=== PATIENT | male | born 1965 | race Caucasian/White ===

== ENCOUNTER 2023-05-30 09:08 | Emergency (ER) | payer SELFPAY ==
[2023-05-30 09:18] VITALS: BP 184/93
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
[2023-05-30 11:41] VITALS: BP 163/100
== END 2023-05-30 11:42 | disposition home or self-care (01) ==
LOC: EMR 09:08
PROVIDERS: EMERGENCY PHYSICIAN Student in an Organized Health Care Education/Training Program; FAMILY PHYSICIAN Nurse Practitioner Family
DX: S00.11XA Contusion of right eyelid and periocular area, initial encounter (principal); V89.2XXA Person injured in unspecified motor-vehicle accident, traffic, initial encounter; R03.0 Elevated blood-pressure reading, without diagnosis of hypertension
CPT/HCPCS: 99284; 70450; 70480

== ENCOUNTER 2024-11-21 05:42 | Emergency (ER) | payer SELFPAY ==
[2024-11-21] VITALS (10 sets, daily range): BP systolic 170–221; BP diastolic 102–123
--- NOTE | 2024-11-21 06:11 | ED.GENMED ---
History of Present Illness
General
Chief Complaint: Abdominal Pain
Source: patient
Exam Limitations: none
Time Seen by Provider: 11/21/24 05:57
History of Present Illness
History of Present Illness:
59yoM with a history of hypertension presenting for evaluation of abdominal pain. Patient woke up in the middle of the night at 1:30am with pain in his epigastric and RUQ. He describes a severe burning pain that has been constant. He is also
nauseous and has vomited 6x so far. This is the 4th time that he has had this pain but the prior episodes have not lasted this long. He ate a hoagie at [facility] for dinner last night. He also had a stressful court hearing yesterday. He denies any
fevers, hematemesis, chest pain, shortness of breath, diarrhea, difficulty urinating. No previous abdominal surgeries.
Phy Exam
General Physical Exam
General Presentation: well appearing and no apparent distress
General Skin: warm and dry
General Habitus: normal
General Mental: alert
ENT Exam
ENT Exam: normocephalic
Cardiovascular Exam
Cardiovascular Exam: regular rate/rhythm and no murmur
Pulmonary Exam
Pulmonary Exam: lungs clear, no respiratory distress, no rales, no crackles, no rhonchi and no wheezing
Gastrointestinal Exam
Gastrointestinal Exam: soft, non distended and other (+Tenderness in RUQ and RLQ. Abdomen soft, non-distended. No guarding.)
Neurological Exam
Neurological Exam: alert
[place] Coma Scale
Eye Opening: Spontaneous
Verbal Response: Oriented
Motor Response: Obeys Commands
GCS Total Score: 15
Skin Exam
Skin Exam: warm/dry and other (Diffuse scabbed rash noted. Patient is recovering from poison iris.)
Psychiatric Exam
Psychiatric Exam: normal mood/affect
Course
Orders/Labs/Results
Orders:
Orders
11/21/24 05:49
Electrocardiogram (*1) Urgent
Reason for Study: Abdominal Pain
EKG- Treatment ONCE
IV Insert/Care/Rem.- Treatment PRN
11/21/24 06:03
Comprehensive Metabolic Panel Urgent
Lipase Urgent
Magnesium Urgent
Comment: ADD ON
11/21/24 06:04
Complete Blood Count/With Diff Urgent
11/21/24 06:06
0.9% Sodium Chloride 1000 ml [Nss] 1,000 ml IV BOLUS
HYDROmorphone [Dilaudid] 0.5 mg IV NOW STA
11/21/24 06:07
CT Abd/pelvis W Iv Cont Urgent
Comment:
Reason For Exam: R sided abd pain, epigastric pain
Ondansetron Injectable [Zofran] 4 mg IV NOW STA
11/21/24 06:11
Troponin I Urgent
11/21/24 06:25
Add On- LAB Urgent
Tests Added?: magnesium
11/21/24 07:16
Urinalysis Reflex To Culture Urgent
Date Specimen was Collected: 11/21/24
Time Specimen was Collected: 05:49
Abnormal Lab Results
11/21/24 11/21/24
06:03 06:04
Abs Immat Gran (auto) 0.1 H 10^3/uL
(0-0.05)
Absolute Neuts (auto) 8.1 H 10^3/uL
(1.4-6.5)
Absolute Lymphs (auto) 1.1 L 10^3/uL
(1.2-3.4)
Absolute Monos (auto) 0.7 H 10^3/uL
(0.1-0.6)
Immature Gran % 0.6 H %
(0-0.5)
Neutrophils % 79.1 H %
(42.2-75.2)
Lymphocytes % 11.1 L %
(20.5-51.1)
Creatinine 0.6 L mg/dL
(0.7-1.3)
Glucose 152 H mg/dl
(70-99)
Total Protein 8.4 H g/dl
(6.3-8.2)
Albumin 5.2 H g/dl
(3.5-5.0)
11/21/24 06:04
11/21/24 06:03
Vital Signs
Temp: 97.5 F
Initial and Last Documented VS:
Initial Vital Signs
Pulse Resp BP Pulse Ox
70 24 170/110 98
11/21/24 05:45 11/21/24 05:45 11/21/24 05:45 11/21/24 05:45
Last Documented Vital Signs
Temp Pulse Resp BP Pulse Ox
97.5 F 75 20 201/102 96
11/21/24 06:24 11/21/24 08:05 11/21/24 08:00 11/21/24 09:25 11/21/24 09:30
MDM/Problems Addressed
Differential Diagnosis Includes:
59yoM here with abd pain that woke him up from sleep last night. Described as severe pain in epigastric/RUQ pains. Associated with vomiting. Similar pains in the past. He is hypertensive with otherwise stable vitals. He is non-toxic appearing. No
signs of peritonitis on abdominal exam. Differential diagnosis includes but is not limited to: cholecystitis, biliary colic, gastritis, appendicitis, gastroenteritis
Initial ED plan: Check abdominal labs, troponin/EKG, UA, and CT abdomen. IV Zofran, Dilaudid, and fluid bolus for symptoms.
*Pulse Oximetry
SaO2: 98
Oxygen Mode of Delivery: Room air
Patient hypoxic: no (98%)
*EKG
Interpreted by ED Provider?: Yes
EKG Intrepretation Date: 11/21/24
Heart Rate: 74
Rate: normal
Rhythm: sinus and PVC's
[place]: normal axis
Interval: normal interval
QRS Pattern: normal QRS
Ischemia: no ischemia
*Critical Care Note
Total Time (30-74mins, 75-104mins- exclusive of procedures): Not Applicable
Update Note
Update Note:
Labs unremarkable including normal white count, renal function, LFTs, and lipase. EKG shows normal sinus rhythm with frequent PVCs. Troponin within normal limits. UA bland. CT shows cholelithiasis without evidence of cholecystitis. No other
acute findings on imaging. Patient feeling significantly improved on reassessment and pain is down to a 2/10 in severity. Suspect biliary colic as source of his pain. He was advised to eat a low fat diet and follow-up with general surgery. His
blood pressure was also elevated throughout ED stay. Patient missed the last 3 doses of his antihypertensives. He was advised to f/u with his PCP for blood pressure recheck. Strict ED return precautions discussed including uncontrolled pain,
fevers, chills, jaundice. Patient in agreement with plan and was discharged in stable condition.
ED Attending Note
-
Portions of this chart may have been created with voice recognition software.� Occasional wrong word or��sound alike� substitutions may have occurred due to the inherent limitations of voice recognition software.
Discharge Plan
Departure
Patient Disposition: Home (Routine Discharge)
Date of Disposition: 11/21/24
Time of Disposition: 09:40
Patient with high blood pressure during this ER visit?: Yes
Discharge Problem:
Biliary colic, Hypertension
Instructions: Gallstones (DC), Low-fat diet
Referrals:
Trevin Mathews MD [Active, Surgical]
UNKNOWN - PT DOES,NOT KNOW [Family Provider]
Activity Restrictions/Additional Instructions:
Eat a low-fat diet. Take Tylenol and ibuprofen as needed for pain.
Please call today to schedule a follow-up with general surgery. Return to the ER with any worsening symptoms including uncontrolled pain, fevers, chills, or jaundice.
Your blood pressure was significantly elevated while in the emergency department today. Please take your blood pressure medications as prescribed and follow-up with your family doctor for blood pressure check.
Interventions
Interventions:
*Risk Screen - Suicide Last Done: 11/21/24 05:45
*General Assessment Last Done: 11/21/24 05:45
*Neglect/Abuse Screening Last Done: 11/21/24 05:45
*ED- Fall Risk Assessment Last Done: 11/21/24 05:45
*ED COVID-19 Vaccine History Last Done: 11/21/24 05:45
*Nursing Disposition Last Done: 11/21/24 10:10
RJ-Uvhdax-Rczsewrouy Assessment Last Done: 11/21/24 05:54
Discharge Date and Time
Discharge Date/Time: 11/21/24 10:00
Print Language: YI
[2024-11-21] MEDS: DILAUDID 0.5 MG IV (06:15)
[2024-11-21] MEDS: ZOFRAN 4 MG IV (06:15)
[2024-11-21] MEDS: NSS 1000 IV (06:15)
[2024-11-21 06:20] LABS: Hematocrit 44.5 % (39.0-52.0); Hemoglobin 15.7 g/dL (13.0-18.0); Mean Corp Hgb Conc. 35.3 g/dL (33.0-37.0); Mean Corpuscular Volume 82.4 fL (80.0-94.0); Nucleated Red Blood Cells % 0 % (-); Platelet Count 243 10^3/uL (130-400); Red Cell Dist. Width 12.8 % (11.5-14.5)
[2024-11-21 06:30] LABS: ALT (SGPT) 19 U/L (0-50); AST (SGOT) 24 U/L (17-59); Albumin 5.2 g/dl (3.5-5.0); Alkaline Phosphatase 62 U/L (38-126); Blood Urea Nitrogen 11 mg/dl (9-20); Calcium 9.9 mg/dl (8.4-10.2); Carbon Dioxide 24 mmol/L (22-30); Chloride 104 mmol/L (98-107); Estimated Creatinine Clearance > 125 ml/min; Glucose 152 mg/dl (70-99); Lipase 41 U/L (23-300); Potassium 4.2 mmol/L (3.5-5.1); Sodium 139 mmol/L (135-145); Total Protein 8.4 g/dl (6.3-8.2); eGFR > 60.00
[2024-11-21 06:42] LABS: Troponin I < 0.012 ng/ml
[2024-11-21 06:43] LABS: Magnesium 1.8 mg/dl (1.6-2.3)
[2024-11-21 07:40] LABS: Urine Character Clear (Clear)
== END 2024-11-21 10:00 | disposition home or self-care (01) ==
LOC: EMR 05:42
PROVIDERS: Physician Assistant; Student in an Organized Health Care Education/Training Program; EMERGENCY PHYSICIAN Emergency Medicine
DX: K80.70 Calculus of gallbladder and bile duct without cholecystitis without obstruction (principal); R11.2 Nausea with vomiting, unspecified; I10 Essential (primary) hypertension; L23.7 Allergic contact dermatitis due to plants, except food; Z88.0 Allergy status to penicillin
CPT/HCPCS: 99284; 96375; 96361; 96374; 74177; 80053; 81003; 83690; 83735; 84484; 85025; 93005; Q9967

== ENCOUNTER 2024-11-26 15:29 | Inpatient (IN) | payer OTHER, SELFPAY ==
[2024-11-26 10:30] VITALS: BP 165/106
[2024-11-26 11:27] VITALS: BP 157/85
[2024-11-26 12:00] VITALS: BP 159/83
[2024-11-26] MEDS: DILAUDID 0.5 MG IV ×2 (12:41→23:00)
[2024-11-26] MEDS: NSS 1000 IV ×2 (12:41→17:38)
[2024-11-26] MEDS: ZOFRAN 4 MG IV (12:43)
[2024-11-26 12:58] LABS: Hematocrit 37.8 % (39.0-52.0); Hemoglobin 13.3 g/dL (13.0-18.0); Mean Corp Hgb Conc. 35.2 g/dL (33.0-37.0); Mean Corpuscular Volume 82.2 fL (80.0-94.0); Nucleated Red Blood Cells % 0 % (-); Platelet Count 254 10^3/uL (130-400); Red Cell Dist. Width 12.8 % (11.5-14.5)
[2024-11-26 13:12] LABS: ALT (SGPT) 62 U/L (0-50); AST (SGOT) 40 U/L (17-59); Albumin 3.6 g/dl (3.5-5.0); Alkaline Phosphatase 187 U/L (38-126); Blood Urea Nitrogen 28 mg/dl (9-20); Calcium 9.3 mg/dl (8.4-10.2); Carbon Dioxide 23 mmol/L (22-30); Chloride 97 mmol/L (98-107); Glucose 96 mg/dl (70-99); Lipase 36 U/L (23-300); Potassium 3.9 mmol/L (3.5-5.1); Sodium 130 mmol/L (135-145); Total Protein 6.6 g/dl (6.3-8.2); eGFR > 60.00
--- NOTE | 2024-11-26 13:50 | ED.GENMED ---
History of Present Illness
General
Chief Complaint: Abdominal Symptoms
Time Seen by Provider: 11/26/24 11:24
History of Present Illness
History of Present Illness:
see mdm
Phy Exam
Physical Exam
Physical Exam:
GENERAL: Alert , in no apparent distress temp 100.2
EYE: pupils equal and reactive
NECK: Supple
ENT: o/p clr, mmm.
CARDIAC: Regular rate and rhythm .
LUNGS: Clear breath sounds bilaterally, no acute respiratory distress, no wheezes/rales/rhonchi
ABDOMEN: Soft, moderate RUQ tendneress, no r/g, no cvat, normal bowel sounds
NEUROLOGICAL: Alert and oriented, no focal neuro deficits
SKIN: Warm and dry, skin intact.
MUSCULOSKELETAL: No edema, well perfused.
PSYCH: Normal and appropriate interaction.
Course
Orders/Labs/Results
Orders:
Orders
11/26/24 12:04
Urinalysis Reflex To Culture Urgent
0.9% Sodium Chloride 1000 ml [Nss] 1,000 ml IV BOLUS
HYDROmorphone [Dilaudid] 0.5 mg IV NOW STA
Ondansetron Injectable [Zofran] 4 mg IV NOW STA
US Abdomen Complete/Upper Urgent
Comment:
Reason For Exam: ruq pain, gallstones, fever
11/26/24 12:39
Complete Blood Count/With Diff Urgent
Comprehensive Metabolic Panel Urgent
Lactic Acid Urgent
Lipase Urgent
Blood Culture Q30M
LACEY Source: Blood/Venous
Specimen Description:
Blood Culture Q30M
LACEY Source: Blood/Venous
Specimen Description:
11/26/24 14:40
Ampicillin/Sulbactam 3 G [Unasyn] 3 gm 0.9% Sodium Chloride 100 ml [Nss] 100 ml IV NOW
Abnormal Lab Results
11/26/24
12:39
WBC 13.1 H 10^3/uL
(4.8-10.8)
RBC 4.60 L 10^6/uL
(4.70-6.10)
Hct 37.8 L %
(39.0-52.0)
Abs Immat Gran (auto) 0.2 H 10^3/uL
(0-0.05)
Absolute Neuts (auto) 9.8 H 10^3/uL
(1.4-6.5)
Absolute Lymphs (auto) 1.0 L 10^3/uL
(1.2-3.4)
Absolute Monos (auto) 1.7 H 10^3/uL
(0.1-0.6)
Immature Gran % 1.1 H %
(0-0.5)
Lymphocytes % 8.0 L %
(20.5-51.1)
Monocytes % 13.0 H %
(1.7-9.3)
Sodium 130 L mmol/L
(135-145)
Chloride 97 L mmol/L
(98-107)
BUN 28 H mg/dl
(9-20)
ALT 62 H U/L
(0-50)
Alkaline Phosphatase 187 H U/L
(38-126)
11/26/24 12:39
11/26/24 12:39
Vital Signs
Initial and Last Documented VS:
Initial Vital Signs
Temp Pulse Resp BP Pulse Ox
37.0 C 99 16 165/106 97
11/26/24 10:30 11/26/24 10:30 11/26/24 10:11/26/24 10:30 11/26/24 10:30
Last Documented Vital Signs
Temp Pulse Resp BP Pulse Ox
37.0 C 99 16 165/106 97
11/26/24 10:30 11/26/24 10:30 11/26/24 10:30 11/26/24 10:30 11/26/24 14:00
MDM/Problems Addressed
Differential Diagnosis Includes:
see MDM
MDM/Problems Addressed:
Note:
CHIEF COMPLAINT(S)
Persistent abdominal pain and nausea, low-grade fever, and inability to maintain normal caloric intake.
HISTORY OF PRESENT ILLNESS
pt is a 59 y/o M with recent ED visit 11/21 for epgiastric pain and vomiting related to biliary colic, who returns to continued symptoms of abd pain, nausea, lack of appetite and new fevers to 100.2
He reports ongoing significant abdominal pain that originally manifested in the right upper quadrant and has since migrated, alongside nausea. The patient notes that his discomfort has been persistent and debilitating, impeding his ability to
work. He admits to having a fever which he estimates peaked at approximately 100.2 degrees Fahrenheit, as he experienced chills, although he did not consistently measure it. The fever was controlled temporarily with ibuprofen, taken twice daily. He
reports significant fatigue and sleepiness, alongside poor dietary intake, only managing to consume small portions of rice and potatoes due to persistent nausea. He also experiences dark urine but reports improvement over the last couple of days.
The patient describes associated pain in the right shoulder, particularly painful with deep breaths. He expresses the previous plan to manage the issue conservatively until an upcoming planned surgical consultation but finds the symptoms
increasingly unbearable.
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
The patient appears to have job-related stress, as he mentions being unable to perform at work due to his debilitating pain and fatigue.
PAST MEDICAL HISTORY
Hypertension
PHYSICAL EXAM
- Abdominal pain localized initially in the right upper quadrant
- Shoulder pain only noted in right shoulder, exacerbated with deep breathing
- Vital signs reviewed
- Nursing notes reviewed
PROBLEM LIST
Acute Problems:
- Abdominal pain secondary to gallstones
- Nausea/vomiting
- Low-grade fever
- Fatigue
Chronic Problems:
- Hypertension
PLAN
- Perform blood tests for further analysis and evaluation
- Administer intravenous fluids to manage dehydration and support the patient due to minimal oral intake
- Keep the patient nil per os (NPO) until assessment is completed
- Facilitate an abdominal ultrasound to reassess gallstone presence and gallbladder status
- Assess the need for pain management tailored to the patients expressed combination of pain and nausea
DIFFERENTIAL DIAGNOSIS
The Differential Diagnosis includes, in no particular order and is not limited to:
1. Acute cholecystitis
2. Biliary colic
3. Choledocholithiasis
4. Pancreatitis
5. Peptic ulcer disease
6. Gastritis
7. Hepatitis
8. Appendicitis
9. Gastroenteritis
10. Musculoskeletal pain (e.g., Costochondritis)
porsche camarena in room 6 is 59 y/o M h/o htn
here 11/21 for RUQ pain, vomiting; no fever; had normal wbc, normal lfts and ct showing gallstones
pain controlled, went home
has continued with pain, nauesa, and now temps 100.2
AST 40, ALT 62, ALK PHOS 187, wbc 13
and US shows thickened gb wall; 1.4 stone in the neck, and slightly dilated cbd 7 mm no obvious stone there
d/w surgery dr. gerard
admit medicine
abx
will try unasyn; d/w pharmacist; pot has tolerated amox before
*Pulse Oximetry
SaO2: 97
Oxygen Mode of Delivery: Room air
Patient hypoxic: no (97)
*Critical Care Note
Total Time (30-74mins, 75-104mins- exclusive of procedures): Not Applicable
ED Attending Note
-
Portions of this chart may have been created with voice recognition software.� Occasional wrong word or��sound alike� substitutions may have occurred due to the inherent limitations of voice recognition software.
Discharge Plan
Departure
Patient Disposition: Admit
Date of Disposition: 11/26/24
Time of Disposition: 14:12
Admit to: Med/Surg
Presentation/result/management discussed w/ accepting MD/DO: Hospitalist
Condition: Fair
Covid-19: Not Applicable
Discharge Problem:
Acute cholecystitis
Prescriptions:
No Action
lisinopril 10 mg tablet
10 mg PO DAILY
metoprolol succinate [Toprol XL] 50 mg Tablet Extended Release 24 Hr
50 mg PO DAILY
calcium carbonate [Tums] 200 mg calcium (500 mg) Tablet,Chewable
200 mg PO BIDPRN PRN (Reason: gerd)
metoprolol succinate [Toprol XL] 25 mg Tablet Extended Release 24 Hr
25 mg PO QPM
escitalopram oxalate [Lexapro] 10 mg Tablet
10 mg PO DAILY
ibuprofen [Advil] 200 mg Tablet
800 mg PO DAILYPRN PRN (Reason: mild pain)
Interventions
Interventions:
*General Assessment Last Done: 11/26/24 14:41
*Neglect/Abuse Screening Last Done: 11/26/24 14:41
*ED- Fall Risk Assessment Last Done: 11/26/24 14:41
*ED COVID-19 Vaccine History Last Done: 11/26/24 14:41
Discharge Date and Time
Print Language: [place]
--- NOTE | 2024-11-26 14:42 | HPS.HSE ---
Family Physician
-
Family Physician:
Chief Complaint
-
epigastric pain to right side abdomen with nausea, lack of appetite for the past 5 days
History of Present Illness
59-year-old male complaining of epigastric pain to right side abdomen with nausea, lack of appetite for the past 5 days. He has been taken Motrin 800 mg twice daily for pain and has been lying in bed not taking a temperature. On arrival his temp
was 100.2 F. He was recently seen in the ER on 11/21 for epigastric pain and vomiting secondary to biliary colic however he returned today due to persistent debilitating pain with inability to work and a low-grade fever with chills. He has been
taking ibuprofen twice a day for the low-grade fevers. He has been eating small portions of rice and potatoes due to persistent nausea. In the ER his ultrasound shows acute cholecystitis with mild CBD dilation 7 mm. He denies headache, sore
throat, chest pain, palpitations, cough, shortness of breath, diarrhea, urinary symptoms, rash. He has past medical history of uncontrolled hypertension, depression.
Medical History
Past Medical History
Past Medical History: Reports Other
Additional Past Medical History:
Uncontrolled hypertension
Depression
Past Surgical History: Reports Other
Additional Past Surgical History:
Right shoulder AC separation dislocation reconstruction 1982, repeat 1990
Social History
Tobacco: Smoker (Occasionally smokes 0 to a couple cigarettes when out with friends)
Alcohol: None
Drug: None
Personal: Single
Employment: Employed
Family History
Family History: Not pertinent
Allergies / Home Medications
Allergies reflects when Allergies were last updated in [facility].
Home Medications with original date entered in [facility]
Allergy/Medication List:
Allergies
Allergy/AdvReac Type Severity Reaction Status Date / Time
Penicillins Allergy questionable Verified 11/26/24 14:19
rash at 5
years old,
tolerates
amoxicillin
Home Medications
calcium carbonate (Tums) 200 mg PO BIDPRN PRN gerd 11/26/24
escitalopram oxalate 10 mg tablet (Lexapro) 10 mg PO DAILY 11/26/24
ibuprofen 200 mg tablet (Advil) 800 mg PO DAILYPRN PRN mild pain 11/26/24
lisinopril 10 mg tablet 10 mg PO DAILY 11/26/24
metoprolol succinate 25 mg tablet,extended release 24 hr (Toprol XL) 25 mg PO QPM 11/26/24
metoprolol succinate 50 mg tablet,extended release 24 hr (Toprol XL) 50 mg PO DAILY 11/26/24
Review of Systems
-
History Source: Patient and Family (Daughter at bedside)
A 12 point ROS was completed and negative except as noted: Yes
Constitutional: Reports Fever and Chills
EENT: Denies Sore Throat or Runny Nose
Respiratory: Denies Cough or Trouble Breathing
Cardiac: Denies Chest Pain or Diaphoresis
Abdomen/GI: Reports Abdominal Pain (Epigastric to right upper quadrant) and Nausea; Denies Vomiting, Diarrhea, Constipated, Bloody Stools or Black Stools
: Denies Dysuria, Frequency, Flank Pain, Incontinence, Difficulty Voiding, Urgency or Dark Urine
Musculoskeletal: Denies Joint Pain or Edema
Skin: Denies Itching or Rash
Neurological: Denies Dizzy, Headache or Weakness
Endocrine: Reports No Symptoms
Hematologic/Lymphatic: Reports No Symptoms
Psych: Reports Calm
Physical Exam
Vital Signs
Vital Signs
Temp Pulse Resp BP Pulse Ox
98.6 F 99 16 165/106 97
11/26/24 10:30 11/26/24 10:30 11/26/24 10:30 11/26/24 10:30 11/26/24 14:00
Physical Exam
General: Conversant; No Pain, Fever or Chills
HEENT: NormoCephalic, Anicteric, PERRLA, [place] Conjunctivae and No Ptosis
Respiratory: Clear; No Wheezes, Rales or Rhonchi
Cardiac: S1/S2 and Regular Rhythm; No Murmur, Rub, Gallop or Peripheral Edema
Breast: Deferred by me
GI: Soft, Non Distended, Normal Bowel Sounds, Tender (Epigastric, right upper quadrant) and No Hepatosplenomegaly
Rectal: Deferred by Provider
Genito-urinary: Deferred by me
Musculoskeletal: No Clubbing, No Cyanosis and No Edema
Skin: Warm and Dry; No Rash
Neuro: AO x 3, No Motor Deficits, Nonfocal/grossly intact, Cranial Nerves Intact and No Sensory Deficits; No Slurred Speech, Facial Droop, Tremors or Sedated
Psych: Calm
Laboratory Results
-
11/26/24 12:39
11/26/24 12:39
Laboratory Results
Lactic Acid 0.9 mmol/L (0.7-2.0) 11/26/24 12:39
Total Bilirubin 1.1 mg/dl (0.2-1.3) 11/26/24 12:39
AST 40 U/L (17-59) 11/26/24 12:39
ALT 62 U/L (0-50) H 11/26/24 12:39
Alkaline Phosphatase 187 U/L (38-126) H 11/26/24 12:39
Lipase 36 U/L (23-300) 11/26/24 12:39
Data Reviewed
-
Ultrasound: Report Reviewed by me
Lab Data: Labs Reviewed by me
Impression/Plan
-
Impression/plan:
Admit to MedSurg
#Acute cholecystitis with mild CBD dilation
#Mild transaminitis secondary to above
WBC 13.1 no shift, afebrile, ALT 62, alk phos 187
- N.p.o.
- Consult Isabella Valencia made aware
- IV Unasyn, IV NSS
- Pain control IV Dilaudid, IV Zofran
- IV Zofran
-MRCP/MRI abdomen
- Follow CBC, CMP
Ultrasound abdomen complete:
1.) 1.4 cm gallstone in the neck of the gallbladder, nonmobile.
2). Gallbladder wall appears thickened and heterogeneous with suggestion of edema within the gallbladder wall. Imaging findings would be suggestive of acute cholecystitis, although the patient has a negative
sonographic Rehman's sign.
3.) Mild dilation of the common bile duct, measuring up to 7 mm, which appears to be new since CT scan of November 21, 2024. No sonographic evidence for common bile duct calculus, although the entire common bile duct is
not visualized.
4.) Upper abdominal aorta and upper abdominal IVC are unable to be adequately visualized.
5.)Suboptimal visualization of the pancreas, with no gross abnormality in the peripancreatic region.
#Hx Uncontrolled hypertension
BP 165/106 > 129/79 patient did take a.m. meds
-Toprol XL 50 mg in a.m., 25 mg every afternoon, lisinopril 10 mg daily
- IV hydralazine 10 mg SBP>165 danielle>110
#Mild hyponatremia
NA 130 will follow
#Occasional smoker
States smokes occasionally with friends sometimes once a week sometimes a couple
-Cessation advised
DVT prophylaxis
SCDs
Full code
--- NOTE | 2024-11-26 15:08 | W.PN.UPDATE ---
Update Note
Progress Note Update
This is an addendum to H&P written by Yolanda Newberry on 11/26/2024. �Patient seen and examined independently with [facility]ST[facility].
59-year-old male past medical history of hypertension, anxiety/depression, presenting with Right upper quadranrt pain and fevers and chills.�
Blood pressure 180s to 220 systolic.
Labs show mild ALT elevation of 62, alk phos of 180. �Sodium 130. �Leukocytosis.
Abdominal ultrasound shows 1.4 cm gallstone in the neck of the gallbladder. �Gallbladder wall appears thickened and heterogeneous with suggestion of edema within the gallbladder wall suggesting acute cholecystitis although negative sonographic
Rehman sign. �Mild dilatation of the common bile duct measuring 7 mm without evidence of CBD calculus.
Patient with likely acute cholecystitis, possible choledocholithiasis. �Also elevated blood pressure secondary to pain.
N.p.o., IV fluids, blood cultures, Unasyn, general surgery consulted. MRCP to rule out choledocholithiasis.
--- NOTE | 2024-11-26 15:22 | CON.GS ---
Medical History
-
Chief Complaint: Abdominal pain
History of Present Illness:
Patient is a yo M with a PMH of obesity, tobacco use, and HTN who presents with approximately 1 weeks of upper abdominal pain. Mr. Don was recently evaluated in the ER on 11/21 for RUQ abdominal pain. He was diagnosed with symptomatic
cholelithiasis at that time, but his symptoms improved and he opted for discharge. Since that time he has had persistent RUQ abdominal pain. Radiation to RIGHT shoulder. Limited PO intake. Low grade fevers and chills. Treating himself with
NSAIDs, Nausea, but no emesis. He reports dark urine and jaundice, but no pale stools. Prior attacks dating back to August of 2024. Currently with persistent pain.
Past Medical History
Past Medical History: HTN
Past Surgical History: Orthopedic (RIGHT shoulder)
Social History
Tobacco: Smoker (< 1/2 PPD)
Alcohol: None
Drug: None
Personal: Single
Employment: Employed
Family History
Family History: Reviewed & Noncontributory
Allergies / Home Medications
Allergy/AdvReac Type Severity Reaction Status Date / Time
Penicillins Allergy questionable Verified 11/26/24 14:19
rash at 5
years old,
tolerates
amoxicillin
�Medication �Instructions �Recorded �Confirmed �Type
calcium carbonate (Tums) 200 mg PO BIDPRN PRN gerd 11/26/24 11/26/24 History
escitalopram oxalate 10 mg tablet 10 mg PO DAILY 11/26/24 11/26/24 History
(Lexapro)
ibuprofen 200 mg tablet (Advil) 800 mg PO DAILYPRN PRN mild pain 11/26/24 11/26/24 History
lisinopril 10 mg tablet 10 mg PO DAILY 11/26/24 11/26/24 History
metoprolol succinate 25 mg 25 mg PO QPM 11/26/24 11/26/24 History
tablet,extended release 24 hr
(Toprol XL)
metoprolol succinate 50 mg 50 mg PO DAILY 11/26/24 11/26/24 History
tablet,extended release 24 hr
(Toprol XL)
Review of Systems
-
A 10 point review of systems was completed, and was negative except as per HPI.
Physical Exam
Vital Signs
Temp Pulse Resp BP Pulse Ox
98.6 F 99 16 159/83 97
11/26/24 10:30 11/26/24 10:30 11/26/24 10:30 11/26/24 12:00 11/26/24 14:00
11/25/24 11/26/24 11/27/24
06:59 06:59 06:59
Actual Weight 87.8 kg
Lab Results
11/26/24 12:39
11/26/24 12:39
WBC 13.1 10^3/uL (4.8-10.8) H 11/26/24 12:39
Hgb 13.3 g/dL (13.0-18.0) 11/26/24 12:39
Hct 37.8 % (39.0-52.0) L 11/26/24 12:39
Plt Count 254 10^3/uL (130-400) 11/26/24 12:39
Abs Immat Gran (auto) 0.2 10^3/uL (0-0.05) H 11/26/24 12:39
Neutrophils % 74.9 % (42.2-75.2) 11/26/24 12:39
Physical Exam
General: Well Developed, Well Nourished and No Apparent Distress
HEENT: Normocephalic and Anicteric
Respiratory: Non Labored Respirations
Cardiac: Regular Rhythm
GI: Soft, Non Distended, Tender (RUQ, positive Rehman's sign), Obese and Other (Non-peritoneal)
Musculoskeletal: No Edema
Skin: Warm and Dry
Neuro: Nonfocal/Grossly Intact
Data Reviewed
-
CT Scan: Image Personally Visualized and interpreted and Report Reviewed by me
Ultrasound: Image Personally Visualized and interpreted and Report Reviewed by me
Labs: Labs Reviewed by me
Old Records: Reviewed
Assessment / Plan
-
Patient is a 59 yo M p/w acute cholecystitis
The natural history and pathophysiology of biliary and stone disease was discussed. Anatomy was reviewed. Work-up thus far including labs and imaging was reviewed. Options for management including medical management with abx, procedural
management with priya tube, and surgical management with cholecystectomy were considered and discussed. The pros and cons of all approaches was reviewed. Recommend cholecystectomy.
Plan for a laparoscopic cholecystectomy with possible IOC. The procedure itself, as well as the risks, benefits, and alternatives was discussed. Specifically, we discussed the risks of bleeding, infection, injury to surrounding structures (bowel,
bile ducts), and need for open procedure. Typical post-procedure recovery was discussed. All questions answered. Timing of procedure pending OR availability (today versus tomorrow).
-- Admit to Hospitalist
-- NPO, IVF
-- Laparoscopic cholecystectomy possible IOC
-- Abx: Unasyn given in ED
-- Pain control: Tylenol, Toradol, IV Dilaudid PRN
[2024-11-26] MEDS: UNASYN IV ×2 (15:50→22:12)
[2024-11-26 16:52] VITALS: BP 181/97; BMI 29.7
--- NOTE | 2024-11-26 16:54 | PTCARENOTE ---
1450 Pt received from Ed via stretcher [id number]. Ambulated from stretcher to bed with steady gait. Pt oriented to staff, environment and call light system. All needs met.
[2024-11-26] MEDS: TOPROL XL 25 MG PO (17:35)
[2024-11-26] MEDS: TYLENOL 650 MG PO (20:24)
[2024-11-26 23:31] VITALS: BP 132/69
[2024-11-27] VITALS (9 sets, daily range): BP systolic 5–165; BP diastolic 59–97
[2024-11-27] MEDS: UNASYN IV ×4 (04:41→23:00)
[2024-11-27] MEDS: NSS 1000 IV ×3 (04:42→22:59)
[2024-11-27 05:48] LABS: Hematocrit 35.5 % (39.0-52.0); Hemoglobin 12.1 g/dL (13.0-18.0); Mean Corp Hgb Conc. 34.1 g/dL (33.0-37.0); Mean Corpuscular Volume 84.9 fL (80.0-94.0); Nucleated Red Blood Cells % 0 % (-); Platelet Count 218 10^3/uL (130-400); Red Cell Dist. Width 12.9 % (11.5-14.5)
[2024-11-27 06:09] LABS: ALT (SGPT) 50 U/L (0-50); AST (SGOT) 31 U/L (17-59); Albumin 3.1 g/dl (3.5-5.0); Alkaline Phosphatase 176 U/L (38-126); Blood Urea Nitrogen 21 mg/dl (9-20); Calcium 8.1 mg/dl (8.4-10.2); Carbon Dioxide 24 mmol/L (22-30); Chloride 104 mmol/L (98-107); Estimated Creatinine Clearance 86 ml/min; Glucose 74 mg/dl (70-99); Potassium 3.9 mmol/L (3.5-5.1); Sodium 135 mmol/L (135-145); Total Protein 5.7 g/dl (6.3-8.2); eGFR > 60.00
--- NOTE | 2024-11-27 07:27 | W.PN.HOSP.TC ---
Addendum entered and electronically signed by Pedro King MD 11/27/24 14:02:
Severe acute on chronic cholecystitis
MRCP overnight with no signs of cholelithiasis, possible contained perforation of the posterior wall the gallbladder
Surgery following planning for lap priya with possible intraoperative cultures
N.p.o.
IV fluids
Unasyn
Analgesics
Postoperatively will need incentive spirometer
Hyponatremia, resolved
Hypertension
Continue antihypertensive
Anxiety
Continue Lexapro
Original Note:
Today's Communication/Plan
-
Continue IV fluids, IV Unasyn
laparoscopic cholecystectomy with IOC today with G. Surgery
Assessment / Plan
Assessment / Plan
59-year-old male past medical history of hypertension, anxiety/depression, presenting with Right upper quadranrt pain and fevers and chills
#Acute cholecystitis
#mild CBD dilation on USG
#Mild transaminitis secondary to above
- WBC 13.1 on admission; now within normal limits.
- Patient been afebrile during his hospital stay
- N.p.o.
- Laparoscopic cholecystectomy possible IOC with surgery today
- Continue with IV Unasyn, IV NSS
- Pain control IV Dilaudid
- IV Zofran for nausea as needed
# History of uncontrolled hypertension
-Continue his home meds at this time. Slight elevation could be related to his current pain
- Toprol XL 50 mg in a.m., 25 mg every afternoon, lisinopril 10 mg daily
- IV hydralazine 10 mg SBP>165 danielle>110
#Mild hyponatremia
N- A 130 on admission ; resolved with IV fluids
#Occasional smoker
-Cessation advised
# GERD
- Controlled
# Anxiety
- Stable on Lexapro 10 mg daily; continue
Ultrasound abdomen complete:
1.) 1.4 cm gallstone in the neck of the gallbladder, nonmobile.
2). Gallbladder wall appears thickened and heterogeneous with suggestion of edema within the gallbladder wall. Imaging findings would be suggestive of acute cholecystitis, although the patient has a negative
sonographic Rehman's sign.
3.) Mild dilation of the common bile duct, measuring up to 7 mm, which appears to be new since CT scan of November 21, 2024. No sonographic evidence for common bile duct calculus, although the entire common bile duct is
not visualized.
4.) Upper abdominal aorta and upper abdominal IVC are unable to be adequately visualized.
5.)Suboptimal visualization of the pancreas, with no gross abnormality in the peripancreatic region.
MRCP 11/26/24 : IMPRESSION:
1. Locally perforated acute calculus cholecystitis.
2. No choledocholithiasis.
IMPRESSION:
1. Locally perforated acute calculus cholecystitis.
2. No choledocholithiasis.
DVT prophylaxis
SCDs
Full code
Anticipated Discharge: Within 24 hours
Subjective/Interval History
-
Date of Service: November 27, 2024
Patient laying in bed. Comfortable. Complains of 3/10 pain in the right upper quadrant only with movements and with pressing in the area. Vitals stable with slight elevation of blood pressure. He did not take his blood pressure medication yet
today.
Objective Data
-
Labs:
Laboratory Results
11/27/24
05:23
WBC 10.8
Hgb 12.1 L
Hct 35.5 L
Plt Count 218
Sodium 135
Potassium 3.9
Chloride 104
Carbon Dioxide 24
BUN 21 H
Creatinine 0.9
Glucose 74
Calcium 8.1 L
Total Bilirubin 1.0
AST 31
ALT 50
Alkaline Phosphatase 176 H
Vital Signs:
Vital Signs
Temp Pulse Resp BP Pulse Ox
98.6 F 67 16 132/69 95
11/26/24 23:31 11/26/24 23:31 11/26/24 23:31 11/26/24 23:31 11/26/24 23:31
Review of Systems
-
History Source: Patient
Constitutional: Denies Fever
Respiratory: Denies Cough
Cardiac: Denies Chest Pain
Abdomen/GI: Reports Abdominal Pain (Right upper quadrant); Denies Nausea, Vomiting, Diarrhea or Constipated
Genitourinary: Reports No Symptoms
Musculoskeletal: Reports No Symptoms
Skin: Reports No Symptoms
Neuro: Denies Dizzy or Headache
Endocrine: Denies Polyuria
Physical Exam
-
General: Well Developed, Well Nourished and No Apparent Distress
HEENT: Normocephalic
Respiratory: Clear to Auscultation
Cardiac: Regular Rhythm
GI: Soft, Nondistended and Tender (Right upper quadrant)
Genito-urinary: No Costovertebral Tender
Musculoskeletal: No Edema
Skin: Warm
Neuro: Awake and Alert
Psych: Calm
Data Reviewed
-
Ultrasound: Report Reviewed by me
MRI: Report Reviewed by me
Labs: Labs Reviewed by me, Discussed with Physician and Discussed with Patient
Old Records: Reviewed
[2024-11-27] MEDS: LEXAPRO 10 MG PO (08:57)
[2024-11-27] MEDS: ZESTRIL 10 MG PO (08:58)
[2024-11-27] MEDS: TOPROL XL 50 MG PO (08:58)
--- NOTE | 2024-11-27 09:09 | W.PN.GS2 ---
Today's Communication / Plan
-
-- Lap priya possible IOC
-- Abx: Unasyn
Assessment / Plan
-
Patient is a 59 yo M p/w severe acute on chronic cholecystitis
MRCP overnight with no evidence of choledocholithiasis, with possible contained perforation of the posterior wall of the gallbladder
AVSS
Labs notable for normalized WBC and downtrending LFTs and ALP
We discussed that he likely has severe cholecystitis and high likelihood of need for subtotal cholecystectomy. Option for cholecystostomy tube management was reviewed.
Plan for a laparoscopic cholecystectomy possible cholangiogram. The procedure itself, as well as the risks, benefits, and alternatives was discussed. Specifically, we discussed the risks of bleeding, infection, injury to surrounding structures
(bowel, bile ducts), wound complications, need for open procedure. Typical postprocedure recovery was discussed. All questions answered. Consent signed.
-- Lap priya possible IOC
-- NPO, IVF
-- Abx: Unasyn
-- Pain control: Tylneol and Dilaudid
Subjective Data
-
Date of Service: November 27, 2024
Feels slightly improved. Continued low level of discomfort. No nausea or emesis. No fevers.
Objective Data
-
Intake and Output
11/26/24 11/27/24 11/28/24
06:59 06:59 06:59
Other:
Number of approximated MODERATE 2
amounts of urine
Vital Signs
Temp Pulse Resp BP Pulse Ox
98 F 77 12 162/97 94
11/27/24 07:41 11/27/24 07:41 11/27/24 07:41 11/27/24 07:41 11/27/24 07:41
Lab Results
11/27/24 05:23
11/27/24 05:23
Calcium 8.1 mg/dl (8.4-10.2) L 11/27/24 05:23
Total Bilirubin 1.0 mg/dl (0.2-1.3) 11/27/24 05:23
AST 31 U/L (17-59) 11/27/24 05:23
ALT 50 U/L (0-50) 11/27/24 05:23
Alkaline Phosphatase 176 U/L (38-126) H 11/27/24 05:23
Total Protein 5.7 g/dl (6.3-8.2) L 11/27/24 05:23
Albumin 3.1 g/dl (3.5-5.0) L 11/27/24 05:23
Physical Exam
-
Gen: NAD
Abd: soft, mild tenderness, ND, non-peritoneal
Patient has a leone catheter: No
Patient has a central line: No
--- NOTE | 2024-11-27 09:15 | W.SUR.PREOP ---
Pre-Operative Surgical Note
-
I have examined this patient prior to the performance of the scheduled procedure.
The patient's condition is unchanged from the time of the current History and
Physical and the patient is able to undergo the scheduled procedure.
--- NOTE | 2024-11-27 16:05 | CM ---
Attempted to meet with pt for assessment, off unit
CM to follow up for initial assessment
--- NOTE | 2024-11-27 18:42 | W.IMMPOSTOP ---
Surgical Immed Post Op Note
-
Primary Surgeon: Erik
Assisting Surgeon: None
Pre-op Diagnosis: Acute cholecystitis
Post-op Diagnosis: Acute gangrenous and perforated cholecystitis
Procedure Performed: Laparoscopic cholecystectomy
Anesthesia Type: General
Specimen / Cultures:
1. Gallbladder
Estimated Blood Loss: 11 cc
Complications: None
Operative Findings:
1. Severe gangrenous perforated GB, purulence within GB, necrotic friable wall, large stone
2. Duct identified, unable to thread cholangiogram catheter
3. Artery taken with clips, duct with 0 PDS Endoloop
4. 19 Fr MIKAYLA into operative field
[2024-11-27] MEDS: TOPROL XL PO (20:21)
[2024-11-27] MEDS: DILAUDID 1 MG IV (23:01)
[2024-11-28] MEDS: UNASYN IV ×4 (04:11→21:20)
[2024-11-28] MEDS: DILAUDID 1 MG IV ×2 (04:23→17:22)
[2024-11-28 06:07] LABS: ALT (SGPT) 49 U/L (0-50); AST (SGOT) 33 U/L (17-59); Albumin 3.2 g/dl (3.5-5.0); Alkaline Phosphatase 191 U/L (38-126); Blood Urea Nitrogen 15 mg/dl (9-20); Calcium 7.6 mg/dl (8.4-10.2); Carbon Dioxide 21 mmol/L (22-30); Chloride 103 mmol/L (98-107); Estimated Creatinine Clearance 110 ml/min; Glucose 116 mg/dl (70-99); Potassium 4.6 mmol/L (3.5-5.1); Sodium 135 mmol/L (135-145); Total Protein 5.8 g/dl (6.3-8.2); eGFR > 60.00
[2024-11-28 06:14] LABS: Hematocrit 37.0 % (39.0-52.0); Hemoglobin 12.4 g/dL (13.0-18.0); Mean Corp Hgb Conc. 33.5 g/dL (33.0-37.0); Mean Corpuscular Volume 86.2 fL (80.0-94.0); Platelet Count 268 10^3/uL (130-400); Red Cell Dist. Width 13.2 % (11.5-14.5)
[2024-11-28 07:27] LABS: Nucleated Red Blood Cells % 0 % (-)
[2024-11-28 07:30] VITALS: BP 149/87
--- NOTE | 2024-11-28 07:36 | W.PN.HOSP.TC ---
Addendum entered and electronically signed by Pedro King MD 11/29/24 14:35:
Severe acute on chronic cholecystitis
S/p laparoscopic cholecystectomy on 11/27/2024
-Drain placed by surgery follow output
HIDA scan per surgery
Surgery has recommended GI consult
N.p.o.
IV fluids
Analgesics
Unasyn
Hyponatremia, resolved
Hypertension
Continue antihypertensive
Anxiety
Continue Lexapro
Original Note:
Today's Communication/Plan
-
HIDA Scan
drain culture
c/w IV Abx
c/w IVF while NPO, ADAT per surgery
Assessment / Plan
Assessment / Plan
59-year-old male past medical history of hypertension, anxiety/depression, presenting with Right upper quadrant pain and fevers and chills
#Acute cholecystitis
#s/p Cholecystectomy
#mild CBD dilation on USG
#Mild transaminitis secondary to above
- WBC 13.1 on admission
- concern for sepsis on admission, Blood Cx 11/26 negative x2
- Patient remains afebrile
- Post op Laparoscopic cholecystectomy on 11/27/24
- C/w IV Unasyn pending culture with transition to po on discharge for likely 7d course
- c/w IVF
- Pain control IV Dilaudid
- IV Zofran for nausea
- MIKAYLA drain in place
- draining >100cc of bilious fluid
- GI consult placed for bilious drainage
- HIDA scan ordered
- Bile Cx from MIKAYLA drain
- NPO for now, ADAT per surgery/GI
- Surgery following, appreciate recs. Will schedule surgery f/u as outpatient
# History of uncontrolled hypertension
- Continue his home meds at this time. Slight elevation could be related to his current pain
- Toprol XL 50 mg in a.m., 25 mg every afternoon, lisinopril 10 mg daily
- IV hydralazine 10 mg SBP>165 danielle>110
- will [facility] as patient would like to switch PCP
#Mild hyponatremia (resolved)
- Na 130 on admission ; resolved with IV fluids
#Occasional smoker
- Cessation advised
# GERD
- Controlled
# Anxiety
- Stable on Lexapro 10 mg daily; continue
Ultrasound abdomen complete:
1.) 1.4 cm gallstone in the neck of the gallbladder, nonmobile.
2). Gallbladder wall appears thickened and heterogeneous with suggestion of edema within the gallbladder wall. Imaging findings would be suggestive of acute cholecystitis, although the patient has a negative
sonographic Rehman's sign.
3.) Mild dilation of the common bile duct, measuring up to 7 mm, which appears to be new since CT scan of November 21, 2024. No sonographic evidence for common bile duct calculus, although the entire common bile duct is
not visualized.
4.) Upper abdominal aorta and upper abdominal IVC are unable to be adequately visualized.
5.)Suboptimal visualization of the pancreas, with no gross abnormality in the peripancreatic region.
MRCP 11/26/24 : IMPRESSION:
1. Locally perforated acute calculus cholecystitis.
2. No choledocholithiasis.
IMPRESSION:
1. Locally perforated acute calculus cholecystitis.
2. No choledocholithiasis.
DVT prophylaxis
SCDs
Full code
Anticipated Discharge: > 48 hours
Subjective/Interval History
-
Date of Service: November 28, 2024
Feeling better this morning. Able to urinate, not passing gas or having bms. Abd pain improved but not absent, still having pain in RUQ. No new fevers or chills. No n/v. No overnight events. Wanting to ambulate.
Objective Data
-
Labs:
Laboratory Results
11/28/24
05:26
WBC 12.9 H
Hgb 12.4 L
Hct 37.0 L
Plt Count 268 D
Sodium 135
Potassium 4.6
Chloride 103
Carbon Dioxide 21 L
BUN 15
Creatinine 0.7
Glucose 116 H
Calcium 7.6 L
Total Bilirubin 0.7
AST 33
ALT 49
Alkaline Phosphatase 191 H
Vital Signs:
Vital Signs
Temp Pulse Resp BP Pulse Ox
97.3 F 65 18 145/85 96
11/27/24 23:00 11/27/24 23:00 11/27/24 23:00 11/27/24 23:00 11/27/24 23:00
I&O
11/27/24 11/28/24 11/29/24
06:59 06:59 06:59
Intake Total 800 / 800
Output Total 890 / 890
Balance -90 / -90
Review of Systems
-
History Source: Patient
All other systems: Reviewed and negative
Constitutional: Reports No Symptoms
EENT: Reports No Symptoms Reported
Respiratory: Reports No Symptoms
Cardiac: Reports No Symptoms
Abdomen/GI: Reports Abdominal Pain; Denies Nausea, Vomiting or Diarrhea
Breast: Reports N/A
Genitourinary: Reports No Symptoms
Musculoskeletal: Reports No Symptoms
Skin: Reports No Symptoms
Neuro: Reports No Symptoms
Endocrine: Reports No Symptoms
Hematologic / Lymphatic: Reports No Symptoms
Physical Exam
-
General: Well Developed, Well Nourished, No Apparent Distress and Comfortable
HEENT: Normocephalic, Atraumatic, Moist Mucous Membranes, Anicteric, [place] Conjunctivae, No Ptosis, PERRLA, Nose Appears Normal and Ears Appear Normal
Respiratory: Clear to Auscultation and Non Labored Respirations; Negative Wheezes, Rales or Rhonchi
Cardiac: Regular Rhythm and S1/S2; Negative Murmur, Rub or Calf Tenderness
Breast: N/A
GI: Soft, Nondistended, Tender (RUQ tenderness) and Other (MIKAYLA drain; draining 75cc of sero-bilious fluid )
Genito-urinary: No Costovertebral Tender
Musculoskeletal: No Clubbing, No Cyanosis and No Edema
Skin: Warm, Dry and IV Access / Catheter Site
Neuro: AO x 3
Psych: Calm
[2024-11-28] MEDS: TOPROL XL 50 MG PO (07:41)
[2024-11-28] MEDS: LEXAPRO 10 MG PO (07:41)
[2024-11-28] MEDS: ZESTRIL 10 MG PO (07:41)
[2024-11-28] MEDS: TORADOL 10 MG IV (07:51)
--- NOTE | 2024-11-28 08:07 | W.PN.GS2 ---
Addendum entered and electronically signed by Sb Valencia MD 11/28/24 16:20:
HIDA scan confirms small leak at cystic duct stump likely from poor tissue integrity and friability of tissues. GI aware, Kendra plans for ERCP tomorrow. Patient and family updated.
Original Note:
Today's Communication / Plan
-
-- HIDA scan
-- GI consult
-- NPO, IVF
-- Pain control: Tylenol, Toradol, Oxycodone
-- Abx: Unasyn
Assessment / Plan
-
Patient is a 59 yo M p/w severe acute on chronic cholecystitis
POD#1 s/p laparoscopic cholecystectomy
MRCP with no evidence of choledocholithiasis, with possible contained perforation of the posterior wall of the gallbladder
AVSS
Labs notable for reactive leukocytosis, stable Hb, normal electrolytes and renal function, normal bilirubin and LFTs
Severe gangrenous cholecystitis with friable tissues including cystic duct stump which was controlled with a 0 PDS Endoloop. MIKAYLA drain output this morning concern for some bile-stained fluid. GI consulted, HIDA scan ordered.
-- HIDA scan
-- GI consult
-- NPO, IVF
-- Pain control: Tylenol, Toradol, Oxycodone
-- Abx: Unasyn
-- Home meds
-- DVT: Lovenox
Subjective Data
-
Date of Service: November 28, 2024
No complaints. Pain well controlled. No nausea or emesis. No fevers.
Objective Data
-
Intake and Output
11/27/24 11/28/24 11/29/24
06:59 06:59 06:59
Intake Total 800 / 800
Output Total 890 / 890
Balance -90 / -90
Intake:
Oral fluids 480 / 480
IV fluids (Total) 200 / 200
Normosal 200 / 200
IV piggybacks 120 / 120
Output:
Drain Output (Total) 90 /
Right Abdomen Tylor-Minaya /
Urine, Voided 800 / 800
Other:
Number of approximated MODERATE 2 5
amounts of urine
Vital Signs
Temp Pulse Resp BP Pulse Ox
97.3 F 68 18 149/87 96
11/27/24 23:00 11/28/24 07:41 11/27/24 23:00 11/28/24 07:41 11/27/24 23:00
Lab Results
11/28/24 05:26
11/28/24 05:26
Calcium 7.6 mg/dl (8.4-10.2) L 11/28/24 05:26
Total Bilirubin 0.7 mg/dl (0.2-1.3) 11/28/24 05:26
AST 33 U/L (17-59) 11/28/24 05:26
ALT 49 U/L (0-50) 11/28/24 05:26
Alkaline Phosphatase 191 U/L (38-126) H 11/28/24 05:26
Total Protein 5.8 g/dl (6.3-8.2) L 11/28/24 05:26
Albumin 3.2 g/dl (3.5-5.0) L 11/28/24 05:26
Physical Exam
-
Gen: NAD
Abd: soft, mild tenderness, ND, non-peritoneal, incisions c/d/i - no erythema, ecchymosis or drainage, MIKAYLA with thin dark blood bile tinged fluid
Patient has a leone catheter: No
Patient has a central line: No
--- NOTE | 2024-11-28 09:41 | PN.CDI ---
CDI
- -
CDI:
Physician Documentation Request
Admit Date: 11/26/24 15:29
Dear Doctor,
Please review the following and provide your response in the progress notes.
Clinical Indicators:
Pt admitted with severe acute on chronic cholecystitis.
11/27 General Surgery : ' Operative Findings: 1. Severe gangrenous perforated GB, purulence within GB, necrotic friable wall, large stone.'
Selected Entries
11/26/24
10:30 11/26/24
16:00
Pulse 99 96
Laboratory Tests
11/26/24 11/27/24 11/28/24
12:39 05:23 05:26
WBC 13.1 H 10.8 12.9 H
Please clarify which of the following most accurately describes the status of the patient's infection:
Sepsis
- Systemic manifestations of infection, with 2 or more SIRS criteria which include:
- Fever >100.9 degrees F or hypothermia < 96.8 degrees F
- Leukocytosis - WBC > 12,000 or leukopenia - WBC < 4,000 or > 10% bands
- Tachycardia > 90 beats per minute
- Tachypnea - RR > 20 breaths per minute or PaCO2 , 32mmHg
Source: Merck Manual 2013
- Indicate the known or suspected organism
Severe acute on chronic cholecystitis Only, Without Systemic Illness
Other
Use of terms such as suspected, likely, concern for, or probable (associated with a specific diagnosis that is being evaluated, monitored, or treated as if it exists) are acceptable and can be coded in the inpatient setting, when documented at the
time of discharge.
Thank you,
Cassandra Sanchez RN, BSN
CDI Specialist
Smock Text
Please use your independent medical judgment in providing your response.
--- NOTE | 2024-11-28 10:28 | CON.GI ---
Addendum entered and electronically signed by Reji Miranda MD 11/28/24 16:57:
Patient seen and examined, agree with nurse practitioner note. The patient is a 59-year-old male with past medical history as noted who presents now with pain and fever. He had severe cholecystitis with cholecystectomy on November 27 that showed
necrotic, friable wall and large stone with perforated gallbladder. MIKAYLA drain was placed and has been having bile within that since then. On admission he was found to have mild leukocytosis. HIDA scan now shows tracer within the MIKAYLA drain, though
no suggestion of biloma. On exam he has mild diffuse tenderness though no rebound or guarding, with clear bile in MIKAYLA drain.
1. Bile leak: With recent severe gangrenous perforated cholecystitis and cholecystectomy, without collection of tracer in the right upper quadrant to suggest biloma on HIDA scan, overall nontoxic. At this point we will plan for ERCP tomorrow with
stent placement. We discussed risks and benefits including pancreatitis at length.
Addendum entered and electronically signed by CATHERINE Velásquez 11/28/24 16:32:
HIDA + for leak. Reviewed with patient will add for GI stenting for 11/29. Pt updated
Original Note:
Consultation
-
Date/Time Consultation Requested: 11/28/24 0815
Date/Time Consultation Performed: 11/28/24 1030
Requesting Provider: Sb Valencia MD
Performing Provider: CATHERINE Bone, Grant Molina DO
Reason for Consultation: possible bile leak
Medical History
Chief Complaint / HPI
History of Present Illness:
Pt is a 59yo with hx HTN, depression, asthma, prior shoulder surgery with onset of epigastric pain with decreased appetite. He had been having intermittent pain for several months with motrin use. He initially presented 11/[address] at that
time with cholelithiasis otherwise stable with normal LFT's and WBC's. There was concern for biliary colic with recommended surgical follow up OP. H He then returned 11/26 with continued pain and fever. Labs on admission with WBC 13,100, bili
1.1, AST 40, ALT 62, alk phos 187 and lipase 36. Further imaging with US noted 1.4 cm gallstone in GB neck, GB thickening with concern for acute cholecystitis dilated CBD 7 mm new from 11/21 no CBD stone but not fully evaluated and pancreas not well
see. He had follow up MRCP with CBD 6 cm no filling defect, stable liver, spleen pancreas but abnormal GB with distention, sludge, stones, impacted stone in neck and local perforation. Pt preceded for priya with severe gangrenous perforated GB
with purulence friability large stones and unable to trend cholangiogram. Drain left in place with noted increased bilious drainage overnight and asked to see for need for possible stenting.
Pt admits to nausea with symptoms and abdominal pain that is improving since surgery. He denies issues with odynophagia, dysphagia, GERD but did have some loose carson stool since yesterday. No rectal bleeding. No hx EGD or colonoscopy in past.
No anticoagulation use but did have motrin PRN for abdominal pain prior to admission.
Past Medical History
Past Medical History: Asthma, HTN, Psychiatric (depression) and Other (vasovagal syncope )
Past Surgical History: Orthopedic (shoulder surgery )
Social History
Tobacco: Non-Smoker
Alcohol: Occasional
Drug: None
Living: Alone
Family History
Family History: Other (daughter with IBS-C)
Allergies / Home Medications
Allergy/AdvReac Type Severity Reaction Status Date / Time
Penicillins Allergy questionable Verified 11/26/24 14:19
rash at 5
years old,
tolerates
amoxicillin
�Medication �Instructions �Recorded
calcium carbonate (Tums) 200 mg PO BIDPRN PRN gerd 11/26/24
escitalopram oxalate 10 mg tablet 10 mg PO DAILY 11/26/24
(Lexapro)
ibuprofen 200 mg tablet (Advil) 800 mg PO DAILYPRN PRN mild pain 11/26/24
lisinopril 10 mg tablet 10 mg PO DAILY 11/26/24
metoprolol succinate 25 mg 25 mg PO QPM 11/26/24
tablet,extended release 24 hr
(Toprol XL)
metoprolol succinate 50 mg 50 mg PO DAILY 11/26/24
tablet,extended release 24 hr
(Toprol XL)
Review of Systems
-
History Source: Patient and Family
Constitutional: Reports Fever (prior to admission )
EENT: Reports No Symptoms
Respiratory: Reports No Symptoms
Abdomen/GI: Reports Abdominal Pain, Nausea and Other (carson stool)
: Reports No Symptoms
Musculoskeletal: Reports No Symptoms
Skin: Reports No Symptoms
Neurological: Reports Weakness
Endocrine: Reports No Symptoms
Hematologic/Lymphatic: Reports No Symptoms
Vital Signs
Temp Pulse Resp BP Pulse Ox
97.5 F 68 16 149/87 95
11/28/24 07:30 11/28/24 07:41 11/28/24 07:30 11/28/24 07:41 11/28/24 07:30
Physical Exam
Exam
General: Well Developed, Well Nourished and No Apparent Distress
HEENT: Normocephalic and Anicteric
Respiratory: Wheezes
Cardiac: Regular Rhythm
GI: Soft, Non Distended, Tender (epigastric ) and Other (surgical incisions intact , MIKAYLA drain with bilious fluid )
Musculoskeletal: No Clubbing and No Cyanosis
Skin: Warm and Dry
Neuro: Awake, Alert and AO x 3
Psych: Calm
Results
WBC 12.9 10^3/uL (4.8-10.8) H 11/28/24 05:26
Hgb 12.4 g/dL (13.0-18.0) L 11/28/24 05:26
Hct 37.0 % (39.0-52.0) L 11/28/24 05:26
MCV 86.2 fL (80.0-94.0) 11/28/24 05:26
Plt Count 268 10^3/uL (130-400) D 11/28/24 05:26
Absolute Neuts (auto) 10.4 10^3/uL (1.4-6.5) H 11/28/24 05:26
Sodium 135 mmol/L (135-145) 11/28/24 05:26
Potassium 4.6 mmol/L (3.5-5.1) 11/28/24 05:26
Chloride 103 mmol/L (98-107) 11/28/24 05:26
Carbon Dioxide 21 mmol/L (22-30) L 11/28/24 05:26
BUN 15 mg/dl (9-20) 11/28/24 05:26
Creatinine 0.7 mg/dL (0.7-1.3) 11/28/24 05:26
Calcium 7.6 mg/dl (8.4-10.2) L 11/28/24 05:26
Total Bilirubin 0.7 mg/dl (0.2-1.3) 11/28/24 05:26
AST 33 U/L (17-59) 11/28/24 05:26
ALT 49 U/L (0-50) 11/28/24 05:26
Alkaline Phosphatase 191 U/L (38-126) H 11/28/24 05:26
Lipase 36 U/L (23-300) 11/26/24 12:39
Diagnostic Image Results:
7CT Abd/pelvis W Iv Cont
No CT evidence for an acute inflammatory process in the abdomen or pelvis.
Cholelithiasis
11/26/24 US Abdomen Complete/Upper
1.4 cm gallstone in the neck of the gallbladder, nonmobile.
Gallbladder wall appears thickened and heterogeneous with suggestion of edema within the gallbladder wall. Imaging findings would be suggestive of acute cholecystitis, although the patient has a negative sonographic Rehman's sign.
Mild dilation of the common bile duct, measuring up to 7 mm, which appears to be new since CT scan of November 21, 2024. No sonographic evidence for common bile duct calculus, although the entire common bile duct is not visualized.
Upper abdominal aorta and upper abdominal IVC are unable to be adequately visualized.
Suboptimal visualization of the pancreas, with no gross abnormality in the peripancreatic region.
11/26/24 MRCP
The liver, spleen, kidneys, adrenal glands, pancreas are unremarkable. No intra or extrahepatic biliary dilatation. The common bile duct measures 6 mm. No filling defects in the biliary tree. No dilatation of the pancreatic duct. Gallbladder
distended with layering sludge and stones, including a prominent impacted 2.1 cm stone in the neck.
1. Locally perforated acute calculus cholecystitis.
2. No choledocholithiasis
Prior GI Procedures:
EGD: none
Colonoscopy: none
Assessment / Plan
-
Pt is a 59yo with hx HTN, depression, asthma, prior shoulder surgery with onset of epigastric pain with decreased appetite. He had been having intermittent pain for several months with motrin use. He initially presented 11/[address] at that
time with cholelithiasis otherwise stable with normal LFT's and WBC's. There was concern for biliary colic with recommended surgical follow up OP. H He then returned 11/26 with continued pain and fever. Labs on admission with WBC 13,100, bili
1.1, AST 40, ALT 62, alk phos 187 and lipase 36. Further imaging with US noted 1.4 cm gallstone in GB neck, GB thickening with concern for acute cholecystitis dilated CBD 7 mm new from 11/21 no CBD stone but not fully evaluated and pancreas not well
see. He had follow up MRCP with CBD 6 cm no filling defect, stable liver, spleen pancreas but abnormal GB with distention, sludge, stones, impacted stone in neck and local perforation. Pt preceded for priya with severe gangrenous perforated GB
with purulence friability large stones and unable to trend cholangiogram. Drain left in place with noted increased bilious drainage overnight and asked to see for need for possible stenting.
-concern for acute cholecystitis with local perforation and GB neck stone on imaging
-s/p priya 11/27 with concern for severe gangrenous GB with possible bile leak
- leukocytosis
other med problems:
-HTN
-asthma
-prior shoulder surgery
PLAN:
await HIDA
pending results may need ERCP and stenting -timing to be determined
cont to monitor MIKAYLA output-- noted with 90 ml overnight
post -op care per surgical team
ok for clear diet
family updated
reviewed with nursing for resp rx with some wheezing on exam with hx asthma
-
-
Thank you for consultation and allowing me to participate in the patient's care. Please call the rehabilitation aide/scheduler GI physician during the after hours with any questions or concerns.
--- NOTE | 2024-11-28 12:24 | CON.ID ---
Consultation
-
Date/Time Consultation Requested: November 28, 2024 1001
Date/Time Consultation Performed: November 28, 2024 1230
Requesting Provider: Dr. Ollie Amin
Performing Provider: Dr. Nita Tse
Reason for Consultation: Cholecystitis
Chief Complaint / Past History
Chief Complaint
Abdominal pain
History of Present Illness
59-year-old male with history of hypertension who presented to the hospital on November 26 due to poor appetite and severe right upper abdominal pain. Patient reports he has been having intermittent abdominal pain for 3 months for which he took
ibuprofen. He then developed poor appetite, worsening right side upper abdominal pain, fever for which he presented to the ER on November 21. CT of the abdomen pelvis showed cholelithiasis and gallbladder neck without acute inflammatory process in the
abdomen/pelvis. He did not want to stay and therefore discharged to home. He presented back to the hospital November 26 for chills, weakness, persistent abdominal pain, nausea and poor appetite. White count was 13.1. MRCP showed locally perforated
acute calculus cholecystitis. He was taken to the OR November 27 status post laparoscopic cholecystectomy; severe gangrenous perforated gallbladder containing pus and large stone noted. Postop, patient noted to have high bile output suspicious for bile
leak. HIDA scan today suspicious for bile leak into the drain. GI planning for ERCP tomorrow. He has some post-op discomfort. No BM yet. No further chills.
Past History
Additional Past Medical History:
Uncontrolled hypertension
Depression
Additional Past Surgical History:
Right shoulder AC separation dislocation reconstruction 1982, repeat 1990
Allergy History:
Penicillins Allergy (Verified 11/26/24 14:19)
questionable rash at 5 years old, tolerates amoxicillin
Medications Reviewed: Yes
Current Antibiotics:
Unasyn d2
Social History
Tobacco: Smoker
Alcohol: None
Drug: None
Personal: Single
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
Review of Systems
Review of Systems
General: Change in Appetite; Negative Fever or Chills
HEENT: Negative Sinus Problems, Headache or Pharyngitis
Cardiovascular: Negative Chest Pain
Respiratory: Negative Dyspnea or Cough
Gasteroenterology: Nausea; Negative Vomiting or Diarrhea
Genital / Urological: Negative Dysuria or Flank Pain
Endocrine: Weakness and Fatigue
All systems: All other systems were reviewed and were negative
Vital Signs
Temp Pulse Resp BP Pulse Ox
97.5 F 68 16 149/87 95
11/28/24 07:30 11/28/24 07:41 11/28/24 07:30 11/28/24 07:41 11/28/24 07:30
Physical Exam
Physical Exam
Constitutional: No Acute Distress
Eyes: No Conjunctival Hemorrhage and Sclera Anicteric
Cardiovascular: Regular Rate and S1/S2
Pulmonary: Clear
Gastrointestinal: Soft, Tender (mild RUQ), Non Distended, Decreased Bowel Sounds and Other (RUQ drain just emptied)
Genito-Urinary: Negative CVA Tenderness
Extremities: Negative Edema
Neurological: AO x 3
Lab / Diagnostic Study Results
11/28/24 05:26
11/28/24 05:26
Abs Immat Gran (auto) 0.7 10^3/uL (0-0.05) H 11/28/24 05:26
Absolute Neuts (auto) 10.4 10^3/uL (1.4-6.5) H 11/28/24 05:26
Absolute Lymphs (auto) 0.7 10^3/uL (1.2-3.4) L 11/28/24 05:26
Absolute Monos (auto) 1.0 10^3/uL (0.1-0.6) H 11/28/24 05:26
Absolute Basos (auto) 0.1 10^3/uL (0-0.2) 11/28/24 05:26
Immature Gran % 5.5 % (0-0.5) H 11/28/24 05:26
Neutrophils % 80.4 % (42.2-75.2) H 11/28/24 05:26
Lymphocytes % 5.5 % (20.5-51.1) L 11/28/24 05:26
Monocytes % 8.0 % (1.7-9.3) 11/28/24 05:26
Eosinophils % 0.1 % (0-6) 11/28/24 05:26
Basophils % 0.5 % (0-2) 11/28/24 05:26
Lactic Acid 0.9 mmol/L (0.7-2.0) 11/26/24 12:39
Microbiology Results
Micro:
11/26/24 12:39 Blood Culture - Preliminary
Blood/Venous No Growth in 24 hours- Final report to follow
11/26/24 12:39 Blood Culture - Preliminary
Blood/Venous No Growth in 24 hours- Final report to follow
11/26/24 MRCP: Locally perforated acute calculus cholecystitis.
Assessment / Plan
# Cholecystitis with localized perforated gangrenous GB filled with pus and large stone
. 11/27 s/p lap priya
# Post-op bile leak
# Leukocytosis
- For ERCP tomorrow.
- Follow wbc.
- Agree with Unasyn
- At time of dc, can transition to Augmentin x 7 more days.
[2024-11-28 15:30] VITALS: BP 157/85
--- NOTE | 2024-11-28 16:19 | CM ---
Pt s/p cholecystectomy this AM. Will follow up in AM to complete IA.
[2024-11-28] MEDS: LOVENOX 40 MG SC (17:16)
[2024-11-28] MEDS: TOPROL XL 25 MG PO (17:17)
[2024-11-28] MEDS: DILAUDID 0.5 MG IV (23:19)
[2024-11-28 23:25] VITALS: BP 152/88
[2024-11-29] VITALS (9 sets, daily range): BP systolic 0–185; BP diastolic 78–99; BMI 29.7
[2024-11-29] MEDS: NSS IV (00:24)
[2024-11-29 05:28] LABS: Urine Character Clear (Clear)
[2024-11-29 05:52] LABS: INR 1.04; PT 14.1 Sec (11.4-14.6)
[2024-11-29 05:56] LABS: Hematocrit 33.5 % (39.0-52.0); Hemoglobin 11.2 g/dL (13.0-18.0); Mean Corp Hgb Conc. 33.4 g/dL (33.0-37.0); Mean Corpuscular Volume 85.2 fL (80.0-94.0); Platelet Count 274 10^3/uL (130-400); Red Cell Dist. Width 12.9 % (11.5-14.5)
[2024-11-29 06:12] LABS: ALT (SGPT) 33 U/L (0-50); AST (SGOT) 22 U/L (17-59); Albumin 3.0 g/dl (3.5-5.0); Alkaline Phosphatase 149 U/L (38-126); Blood Urea Nitrogen 9 mg/dl (9-20); Calcium 7.8 mg/dl (8.4-10.2); Carbon Dioxide 25 mmol/L (22-30); Chloride 104 mmol/L (98-107); Estimated Creatinine Clearance 110 ml/min; Glucose 102 mg/dl (70-99); Potassium 3.8 mmol/L (3.5-5.1); Sodium 135 mmol/L (135-145); Total Protein 5.5 g/dl (6.3-8.2); eGFR > 60.00
[2024-11-29] MEDS: UNASYN IV ×4 (06:19→23:04)
--- NOTE | 2024-11-29 07:48 | W.PN.HOSP.TC ---
Addendum entered and electronically signed by Pedro King MD 11/29/24 14:37:
Severe acute on chronic gangrenous cholecystitis
S/p laparoscopic cholecystectomy on 11/27/2024
-Drain placed by surgery follow output
HIDA scan demonstrating biliary
GI recommends ERCP with stent placement
N.p.o.
IV fluids
Analgesics
Unasyn
Hyponatremia, resolved
Hypertension
Continue antihypertensive
Anxiety
Continue Lexapro
Original Note:
Today's Communication/Plan
-
ERCP with stenting today
c/w IV Abx
Assessment / Plan
Assessment / Plan
59-year-old male past medical history of hypertension, anxiety/depression, presenting with Right upper quadrant pain and fevers and chills
#Acute cholecystitis
#s/p Cholecystectomy
#mild CBD dilation on USG
#Mild transaminitis secondary to above
- WBC 13.1 on admission
- concern for sepsis on admission, Blood Cx 11/26 negative x2
- Patient remains afebrile
- Post op Laparoscopic cholecystectomy on 11/27/24
- C/w IV Unasyn pending culture with transition to po on discharge for likely 7d course
- c/w IVF
- Pain control IV Dilaudid
- IV Zofran for nausea
- MIKAYLA drain in place
- draining >100cc of bilious fluid
- GI consult placed for bilious drainage
- HIDA scan showing biloma -- recommend ERCP with stenting - pt will likely go today
- Bile Cx from MIKAYLA drain pending
- NPO for now, ADAT per surgery/GI
- Surgery following, appreciate recs. Will schedule surgery f/u as outpatient
- ID consulted; c/w Unasyn -- transition to po Augmentin on d/c for 7 more days of abx
# History of uncontrolled hypertension
- Continue his home meds at this time. Slight elevation could be related to his current pain
- Toprol XL 50 mg in a.m., 25 mg every afternoon, lisinopril 10 mg daily
- IV hydralazine 10 mg SBP>165 danielle>110
- will set up with [facility] as patient would like to switch PCP
#Mild hyponatremia (resolved)
- Na 130 on admission ; resolved with IV fluids
#Occasional smoker
- Cessation advised
# GERD
- Controlled
# Anxiety
- Stable on Lexapro 10 mg daily; continue
DVT prophylaxis: SCDs
Code status: Full code
Ultrasound abdomen complete:
1.) 1.4 cm gallstone in the neck of the gallbladder, nonmobile.
2). Gallbladder wall appears thickened and heterogeneous with suggestion of edema within the gallbladder wall. Imaging findings would be suggestive of acute cholecystitis, although the patient has a negative
sonographic Rehman's sign.
3.) Mild dilation of the common bile duct, measuring up to 7 mm, which appears to be new since CT scan of November 21, 2024. No sonographic evidence for common bile duct calculus, although the entire common bile duct is
not visualized.
4.) Upper abdominal aorta and upper abdominal IVC are unable to be adequately visualized.
5.)Suboptimal visualization of the pancreas, with no gross abnormality in the peripancreatic region.
MRCP 11/26/24 : IMPRESSION:
1. Locally perforated acute calculus cholecystitis.
2. No choledocholithiasis.
IMPRESSION:
1. Locally perforated acute calculus cholecystitis.
2. No choledocholithiasis.
Nuclear medicine hepatobiliary scan (11/28/2024):
IMPRESSION: Status post cholecystectomy. No evidence for biliary ductal obstruction.
There is radiotracer accumulation within patient's drain. No evidence of a focal collection to suggest a biloma at this time.
Anticipated Discharge: > 48 hours
Subjective/Interval History
-
Date of Service: November 29, 2024
Feeling well this morning, no acute events overnight. Had small, hard, painless, bm today. Not passing gas. urinating well. Abd still present but controlled. no new n/v/fevers/chills. NPO for ERCP today.
Objective Data
-
Labs:
Laboratory Results
11/29/24
05:33
WBC 9.4
Hgb 11.2 L
Hct 33.5 L
Plt Count 274
PT 14.1
INR 1.04
Sodium 135
Potassium 3.8
Chloride 104
Carbon Dioxide 25
BUN 9
Creatinine 0.7
Glucose 102 H
Calcium 7.8 L
Total Bilirubin 0.8
AST 22
ALT 33
Alkaline Phosphatase 149 H
Vital Signs:
Vital Signs
Temp Pulse Resp BP Pulse Ox
98.5 F 79 17 185/99 97
11/29/24 07:39 11/29/24 07:39 11/29/24 07:39 11/29/24 07:39 11/29/24 07:39
I&O
11/28/24 11/29/24 11/30/24
06:59 06:59 06:59
Intake Total 800 / 800 1740 / 1740
Output Total 890 / 890 290 / 290
Balance -90 / -90 1450 / 1450
Review of Systems
-
History Source: Patient
All other systems: Reviewed and negative
Constitutional: Reports No Symptoms
EENT: Reports No Symptoms Reported
Respiratory: Reports No Symptoms
Cardiac: Reports No Symptoms
Abdomen/GI: Reports Abdominal Pain; Denies Nausea, Vomiting, Diarrhea or Constipated
Breast: Reports N/A
Genitourinary: Reports No Symptoms
Musculoskeletal: Reports No Symptoms
Skin: Reports No Symptoms
Neuro: Reports No Symptoms
Endocrine: Reports No Symptoms
Hematologic / Lymphatic: Reports No Symptoms
Allergy / Immunology: Reports No Symptoms
[2024-11-29] MEDS: ZESTRIL 10 MG PO (08:14)
[2024-11-29] MEDS: LEXAPRO 10 MG PO (08:14)
[2024-11-29] MEDS: TOPROL XL 50 MG PO (08:14)
[2024-11-29] MEDS: TORADOL 10 MG IV (08:15)
[2024-11-29 08:30] LABS: Absolute Neutrophils -Man Diff 6.7 10^3/uL (1.4-6.5); Platelets Checked Yes
[2024-11-29 08:31] LABS: Normal RBC Morphology Yes; Total Cells Counted 100
--- NOTE | 2024-11-29 08:54 | W.PN.GS2 ---
Today's Communication / Plan
-
-- GI consult, ERCP today, appreciate help
Assessment / Plan
-
Patient is a 59 yo M p/w severe acute on chronic cholecystitis
POD#2 s/p laparoscopic cholecystectomy
MRCP with no evidence of choledocholithiasis, with possible contained perforation of the posterior wall of the gallbladder
AVSS
Labs notable for reactive leukocytosis, stable Hb, normal electrolytes and renal function, normal bilirubin and LFTs
Severe gangrenous cholecystitis with friable tissues including cystic duct stump which was controlled with a 0 PDS Endoloop. MIKAYLA drain output bilious and HIDA scan concerning for cystic duct stump leak. GI consulted, plan for ERCP today.
-- GI consult, ERCP today, appreciate help
-- NPO, IVF
-- Pain control: Tylenol, Oxycodone
-- Abx: Unasyn
-- Home meds
-- DVT: Lovenox
Subjective Data
-
Date of Service: November 29, 2024
No complaints. Pain well controlled. No fevers. No nausea or emesis.
Objective Data
-
Intake and Output
11/28/24 11/29/24 11/30/24
06:59 06:59 06:59
Intake Total 800 / 800 1740 / 1740
Output Total 890 / 890 290 / 290
Balance -90 / -90 1450 / 1450
Intake:
Oral fluids 480 / 480 1740 / 1740
IV fluids (Total) 200 / 200
Normosal 200 / 200
IV piggybacks 120 / 120
Output:
Drain Output (Total) 90 / 90 290 / 290
Right Abdomen Tylor-Minaya 90 / 90 290 / 290
Urine, Voided 800 / 800
Other:
Number of approximated MODERATE 5 2
amounts of urine
Vital Signs
Temp Pulse Resp BP Pulse Ox
98.5 F 79 17 185/99 97
11/29/24 07:39 11/29/24 08:14 11/29/24 07:39 11/29/24 08:14 11/29/24 07:39
Lab Results
11/29/24 05:33
11/29/24 05:33
Calcium 7.8 mg/dl (8.4-10.2) L 11/29/24 05:33
Total Bilirubin 0.8 mg/dl (0.2-1.3) 11/29/24 05:33
AST 22 U/L (17-59) 11/29/24 05:33
ALT 33 U/L (0-50) 11/29/24 05:33
Alkaline Phosphatase 149 U/L (38-126) H 11/29/24 05:33
Total Protein 5.5 g/dl (6.3-8.2) L 11/29/24 05:33
Albumin 3.0 g/dl (3.5-5.0) L 11/29/24 05:33
Physical Exam
-
Gen: NAD
Abd: soft, NT/ND, non-peritoneal, incisions c/d/i - no erythema, ecchymosis or drainage, MIKAYLA bilious
Patient has a leone catheter: No
Patient has a central line: No
--- NOTE | 2024-11-29 09:44 | W.PN.ID1 ---
Date of Service
Date of Service: November 29, 2024
Today's Communication
Continue Unasyn.
Assessment / Plan
# Gangrenous cholecystitis with localized perforation
. 11/27 s/p lap priya; GB filled with pus and large stone
# Post-op bile leak
# Leukocytosis resolved
- For ERCP today
- Continue Unasyn
- At time of dc, can transition to Augmentin x 7 more days.
Chief Complaint
-: Other (gangrenous cholecysititis)
Subjective / Review of Systems
No new complaints.
Vital Signs / Physical Exam
Vital Signs
Vital Signs
Temp Pulse Resp BP Pulse Ox
98.5 F 79 17 185/99 97
11/29/24 07:39 11/29/24 08:14 11/29/24 07:39 11/29/24 08:14 11/29/24 07:39
Physical Exam
Constitutional: No Acute Distress and Comfortable
Eyes: No Conjunctival Hemorrhage and Sclera Anicteric
Pulmonary: Clear
Gastrointestinal: Soft, Non Tender, Normal Bowel Sounds and Other (RUQ MIKAYLA drain filled with bile)
Extremities: Negative Edema
Neurological: AO x 3
Objective Data
Lab Data
Lab Results
11/29/24 05:33
11/29/24 05:33
PT 14.1 Sec (11.4-14.6) 11/29/24 05:33
INR 1.04 11/29/24 05:33
Estimated Creat Clear 110 ml/min 11/29/24 05:33
Lactic Acid 0.9 mmol/L (0.7-2.0) 11/26/24 12:39
Total Bilirubin 0.8 mg/dl (0.2-1.3) 11/29/24 05:33
AST 22 U/L (17-59) 11/29/24 05:33
ALT 33 U/L (0-50) 11/29/24 05:33
Alkaline Phosphatase 149 U/L (38-126) H 11/29/24 05:33
Most recent labs reviewed.
Micro Results:
11/28/24 16:07 Body Fluid Culture - Pending
Bile Gram Stain - Preliminary
11/26/24 12:39 Blood Culture - Preliminary
Blood/Venous No Growth in 48 hours- Final report to follow
11/26/24 12:39 Blood Culture - Preliminary
Blood/Venous No Growth in 48 hours- Final report to follow
11/26/24 MRCP: Locally perforated acute calculus cholecystitis.
[2024-11-29] MEDS: DILAUDID 0.5 MG IV ×2 (13:13→21:14)
--- NOTE | 2024-11-29 15:37 | PTCARENOTE ---
received pt from GI ERCP procedure , pt stable and HAS greatly improved pain, rates @2. diet changed back to clear liquids. VSS, ambulated from stretcher into room w/o issue
[2024-11-29] MEDS: LOVENOX 40 MG SC (18:31)
[2024-11-29] MEDS: TOPROL XL 25 MG PO (18:32)
[2024-11-30] MEDS: UNASYN IV ×2 (04:19→10:10)
[2024-11-30 07:39] VITALS: BP 172/94
[2024-11-30] MEDS: TOPROL XL 50 MG PO (07:51)
[2024-11-30] MEDS: LEXAPRO 10 MG PO (07:51)
[2024-11-30] MEDS: ZESTRIL 10 MG PO (07:51)
--- NOTE | 2024-11-30 08:20 | W.PN.HOSP.TC ---
Addendum entered and electronically signed by Pedro King MD 11/30/24 13:17:
Tolerating diet
Tolerated ERCP well, s/p sphincterectomy with biliary stent in common hepatic
Outpatient GI follow-up in 6-week
Continue follow-up with surgery as outpatient along with MIKAYLA drain care
-Drain culture preliminary, E. coli presumptive
- -ID following, awaiting final recommendations
Continue antibiotic for total of 7 days from day of discharge
Original Note:
Today's Communication/Plan
-
CLD, ADAT per Surgery
c/w abx
can likely d/c today with drain and sx follow up op in 1 week for drain removal
Assessment / Plan
Assessment / Plan
59-year-old male past medical history of hypertension, anxiety/depression, presenting with Right upper quadrant pain and fevers and chills
#Acute cholecystitis
#s/p Cholecystectomy
#mild CBD dilation on USG
#Mild transaminitis secondary to above
- WBC 13.1 on admission
- concern for sepsis on admission, Blood Cx 11/26 negative x2
- Patient remains afebrile
- Post op Laparoscopic cholecystectomy on 11/27/24
- C/w IV Unasyn pending culture with transition to po on discharge for likely 7d course
- c/w IVF
- Pain control IV Dilaudid
- IV Zofran for nausea
- MIKAYLA drain in place
- draining >100cc of bilious fluid
- GI consult placed for bilious drainage
- HIDA scan showing biloma -- ERCP w/ sphincterotomy, biliary stent in common hepatic.
- Bile Cx from MIKAYLA drain pending
- GI follow up 6 weeks
- CLD, ADAT per surgery/GI
- Surgery following, appreciate recs.
- Will schedule surgery f/u in 1 week for drain removal
- ID consulted; c/w Unasyn -- transition to po Augmentin on d/c for 7 more days of abx
# History of uncontrolled hypertension
- Continue his home meds at this time. Slight elevation could be related to his current pain
- Toprol XL 50 mg in a.m., 25 mg every afternoon, lisinopril 10 mg daily
- IV hydralazine 10 mg SBP>165 danielle>110
- will set up with [facility] as OP as patient would like to switch PCP
#Mild hyponatremia (resolved)
- Na 130 on admission ; resolved with IV fluids
#Occasional smoker
- Cessation advised
# GERD
- Controlled
# Anxiety
- Stable on Lexapro 10 mg daily; continue
DVT prophylaxis: SCDs
Code status: Full code
Ultrasound abdomen complete:
1.) 1.4 cm gallstone in the neck of the gallbladder, nonmobile.
2). Gallbladder wall appears thickened and heterogeneous with suggestion of edema within the gallbladder wall. Imaging findings would be suggestive of acute cholecystitis, although the patient has a negative
sonographic Rehman's sign.
3.) Mild dilation of the common bile duct, measuring up to 7 mm, which appears to be new since CT scan of November 21, 2024. No sonographic evidence for common bile duct calculus, although the entire common bile duct is
not visualized.
4.) Upper abdominal aorta and upper abdominal IVC are unable to be adequately visualized.
5.)Suboptimal visualization of the pancreas, with no gross abnormality in the peripancreatic region.
MRCP 11/26/24 : IMPRESSION:
1. Locally perforated acute calculus cholecystitis.
2. No choledocholithiasis.
IMPRESSION:
1. Locally perforated acute calculus cholecystitis.
2. No choledocholithiasis.
Nuclear medicine hepatobiliary scan (11/28/2024):
IMPRESSION: Status post cholecystectomy. No evidence for biliary ductal obstruction.
There is radiotracer accumulation within patient's drain. No evidence of a focal collection to suggest a biloma at this time.
Anticipated Discharge: Within 24 hours
Subjective/Interval History
-
Date of Service: November 30, 2024
No acute events overnight, tolerating CLD, passing gas, had bowel movement, able to urinate, no new fevers or chills, pain controlled, ambulating well, feeling overall better than yesterday.
Objective Data
-
Labs:
Laboratory Results
11/30/24
07:54
WBC Pending
Hgb Pending
Hct Pending
Plt Count Pending
Sodium Pending
Potassium Pending
Chloride Pending
Carbon Dioxide Pending
BUN Pending
Creatinine Pending
Glucose Pending
Calcium Pending
Total Bilirubin Pending
AST Pending
ALT Pending
Alkaline Phosphatase Pending
Vital Signs:
Vital Signs
Temp Pulse Resp BP Pulse Ox
98.3 F 63 16 172/94 97
11/30/24 07:39 11/30/24 07:51 11/30/24 07:39 11/30/24 07:51 11/30/24 07:39
I&O
11/29/24 11/30/24 12/01/24
06:59 06:59 06:59
Intake Total 1740 / 1740 340 / 340
Output Total 290 / 290 130 / 130
Balance 1450 / 1450 210 / 210
Review of Systems
-
History Source: Patient
Constitutional: Reports No Symptoms
EENT: Reports No Symptoms Reported
Respiratory: Reports No Symptoms
Cardiac: Reports No Symptoms
Abdomen/GI: Reports Abdominal Pain (minimal; improved from yesterday)
Breast: Reports N/A
Genitourinary: Reports No Symptoms
Musculoskeletal: Reports No Symptoms
Skin: Reports No Symptoms
Neuro: Reports No Symptoms
Endocrine: Reports No Symptoms
Hematologic / Lymphatic: Reports No Symptoms
Allergy / Immunology: Reports No Symptoms
Physical Exam
-
General: Well Developed, Well Nourished, No Apparent Distress and Comfortable
HEENT: Normocephalic, Atraumatic, Moist Mucous Membranes, Anicteric, [place] Conjunctivae, No Ptosis, PERRLA, Nose Appears Normal and Ears Appear Normal
Respiratory: Clear to Auscultation and Non Labored Respirations; Negative Wheezes, Rales or Rhonchi
Cardiac: Regular Rhythm and S1/S2; Negative Murmur or Rub
Breast: N/A
GI: Soft, Nondistended, Normal Bowel Sounds, Tender (minimally tender in RLQ/RUQ. Drain site clean dry, no erythema induration. Lap port sites kiara, dry glue present, nontender. ) and Other (MIKAYLA draining bilious fluid)
Rectal: Deferred by Provider
Genito-urinary: Deferred by me
Musculoskeletal: No Clubbing, No Cyanosis and No Edema
Skin: Warm, Dry and IV Access / Catheter Site
Neuro: AO x 3
Psych: Calm
[2024-11-30 08:22] LABS: Hematocrit 35.5 % (39.0-52.0); Hemoglobin 12.1 g/dL (13.0-18.0); Mean Corp Hgb Conc. 34.1 g/dL (33.0-37.0); Mean Corpuscular Volume 85.1 fL (80.0-94.0); Platelet Count 289 10^3/uL (130-400); Red Cell Dist. Width 12.9 % (11.5-14.5)
[2024-11-30 08:37] LABS: ALT (SGPT) 32 U/L (0-50); AST (SGOT) 26 U/L (17-59); Albumin 3.2 g/dl (3.5-5.0); Alkaline Phosphatase 143 U/L (38-126); Blood Urea Nitrogen 8 mg/dl (9-20); Calcium 8.2 mg/dl (8.4-10.2); Carbon Dioxide 29 mmol/L (22-30); Chloride 101 mmol/L (98-107); Estimated Creatinine Clearance > 125 ml/min; Glucose 94 mg/dl (70-99); Potassium 4.1 mmol/L (3.5-5.1); Sodium 135 mmol/L (135-145); Total Protein 5.9 g/dl (6.3-8.2); eGFR > 60.00
--- NOTE | 2024-11-30 10:34 | W.PN.GS2 ---
Today's Communication / Plan
-
-- Maintain MIKAYLA until leak resolved
-- Low fat diet
-- Abx: Unasyn, plan for transition to PO Augmentin on DC
-- OK for DC from surgical perspective
Assessment / Plan
-
Patient is a 59 yo M p/w severe acute on chronic cholecystitis
POD#3 s/p laparoscopic cholecystectomy
PPD#1 s/p ERCP with sphincterotomy and stent placement
MRCP with no evidence of choledocholithiasis, with possible contained perforation of the posterior wall of the gallbladder
AVSS
Labs notable for normal WBC, stable Hb, normal electrolytes and renal function, normal bilirubin and LFTs, down trending ALP
Severe gangrenous cholecystitis with friable tissues including cystic duct stump which was controlled with a 0 PDS Endoloop. MIKAYLA drain output bilious and HIDA scan concerning for cystic duct stump leak. S/p ERCP with decreasing output of drain
volume.
-- Maintain MIKAYLA until leak resolved
-- Low fat diet
-- Pain control: Tylenol, Toradol, Oxycodone
-- Abx: Unasyn, plan for transition to PO Augmentin on DC
-- Home meds
-- DVT: Lovenox
-- OK for DC from surgical perspective
Subjective Data
-
Date of Service: November 30, 2024
Feels well and back to baseline. Pain well-controlled. No nausea or vomiting. No fevers.
Objective Data
-
Intake and Output
11/29/24 11/30/24 12/01/24
06:59 06:59 06:59
Intake Total 1740 / 1740 340 / 340
Output Total 290 / 290 130 / 130
Balance 1450 / 1450 210 / 210
Intake:
Oral fluids 1740 / 1740 240 / 240
IV fluids (Total) 100 / 100
Normosal 100 / 100
Output:
Drain Output (Total) 290 / 290 130 / 130
Right Abdomen Tylor-Minaya 290 / 290 130 / 130
Other:
Number of approximated MODERATE 2 2
amounts of urine
Vital Signs
Temp Pulse Resp BP Pulse Ox
98.3 F 63 16 172/94 97
11/30/24 07:39 11/30/24 07:51 11/30/24 07:39 11/30/24 07:51 11/30/24 10:27
Lab Results
11/30/24 07:54
11/30/24 07:54
Calcium 8.2 mg/dl (8.4-10.2) L 11/30/24 07:54
Total Bilirubin 0.6 mg/dl (0.2-1.3) 11/30/24 07:54
AST 26 U/L (17-59) 11/30/24 07:54
ALT 32 U/L (0-50) 11/30/24 07:54
Alkaline Phosphatase 143 U/L (38-126) H 11/30/24 07:54
Total Protein 5.9 g/dl (6.3-8.2) L 11/30/24 07:54
Albumin 3.2 g/dl (3.5-5.0) L 11/30/24 07:54
Physical Exam
-
Gen: NAD
Abd: soft, NT/ND, non-peritoneal, incisions c/d/i - no erythema, ecchymosis or drainage, MIKAYLA bilious (decreased output)
Patient has a leone catheter: No
Patient has a central line: No
[2024-11-30] MEDS: APRESOLINE 10 MG IV (11:33)
[2024-11-30 11:42] VITALS: BP 188/103
[2024-11-30 13:00] VITALS: BP 150/77
--- NOTE | 2024-11-30 13:40 | CM ---
CM met with Vini today to discuss discharge plans. VN services offered for drain care, however pt's insurance does not have a benefit for VN.
Vini feels he can manage at home. He will contact a family member for a ride home at discharge.
Plan: Discharge to home without services. Pt to follow up with physicians as directed.
--- NOTE | 2024-11-30 14:08 | W.PN.GI.CBS2 ---
Today's Communication / Plan
-
oupatient gi follow up
Assessment / Plan
-
Pt is a 59yo with hx HTN, depression, asthma, prior shoulder surgery with onset of epigastric pain with decreased appetite. He had been having intermittent pain for several months with motrin use. He initially presented 11/[address] at that
time with cholelithiasis otherwise stable with normal LFT's and WBC's. There was concern for biliary colic with recommended surgical follow up OP. H He then returned 11/26 with continued pain and fever. Labs on admission with WBC 13,100, bili
1.1, AST 40, ALT 62, alk phos 187 and lipase 36. Further imaging with US noted 1.4 cm gallstone in GB neck, GB thickening with concern for acute cholecystitis dilated CBD 7 mm new from 11/21 no CBD stone but not fully evaluated and pancreas not well
see. He had follow up MRCP with CBD 6 cm no filling defect, stable liver, spleen pancreas but abnormal GB with distention, sludge, stones, impacted stone in neck and local perforation. Pt preceded for priya with severe gangrenous perforated GB
with purulence friability large stones and unable to trend cholangiogram. Drain left in place with noted increased bilious drainage overnight and asked to see for need for possible stenting.
-concern for acute cholecystitis with local perforation and GB neck stone on imaging
-s/p priya 11/27 with concern for severe gangrenous GB with possible bile leak
- leukocytosis
other med problems:
-HTN
-asthma
-prior shoulder surgery
Underwent ERCP with Dr. Demarco 11/29 for bile leak s/p sphincterotomy and plastic stent
PLAN:
adv diet per surgery
follow up Dr. Demarco in 6 weeks I sent msg to office set up - 01/07 at 7:30am
GI will sign off pls call with questions
Subjective
Subjective
Date of Service: November 30, 2024
Feels well, pain improved
Objective
Data Reviewed
Laboratory Data:
Laboratory Results
11/30/24 07:54
11/30/24 07:54
Laboratory Results
PT 14.1 Sec (11.4-14.6) 11/29/24 05:33
INR 1.04 11/29/24 05:33
Total Bilirubin 0.6 mg/dl (0.2-1.3) 11/30/24 07:54
AST 26 U/L (17-59) 11/30/24 07:54
ALT 32 U/L (0-50) 11/30/24 07:54
Alkaline Phosphatase 143 U/L (38-126) H 11/30/24 07:54
Lipase 36 U/L (23-300) 11/26/24 12:39
Vital Signs and I&O:
Vital Signs
Temp Pulse Resp BP Pulse Ox
98.1 F 78 18 150/77 95
11/30/24 13:00 11/30/24 13:00 11/30/24 13:00 11/30/24 13:00 11/30/24 13:00
I&O
11/29/24 11/30/24 12/01/24
06:59 06:59 06:59
Intake Total 1740 / 1740 340 / 340
Output Total 290 / 290 130 / 130
Balance 1450 / 1450 210 / 210
Physical Exam
Physical Exam
GI: Non Distended and Non Tender
--- NOTE | 2024-11-30 16:31 | W.DCSUMMARY ---
Discharge Summary
Discharge Data
Date of Admission: 11/26/24
Date of Discharge: 11/30/24
Total time spent discharging patient (in min): >30m
-
Pending Results: No
Hospital Course
Discharging Physician : Dr. Pedro King
Disposition : Home
Primary care physician : None - establishing care with family medicine residency clinic
Principal Discharge diagnosis : Severe acute cholecystitis
Chronic Discharge diagnosis : uncontrolled hypertension, anxiety, depression, GERD
Hospital Course :
59-year-old male past medical history of hypertension, anxiety/depression, presented with Right upper quadrant pain, fevers and chills following recent discharge a few days ago from [facility] for similar symptoms after
deciding against cholecystectomy.
On admission patient had leukocytosis, concern for sepsis for which blood cultures were drawn. He was started on IV Unasyn. Surgery was consulted, patient was kept n.p.o. and underwent laparoscopic cholecystectomy on 11/27/2024, during which a
drain was placed. MIKAYLA drain output consisted of copious bilious fluid raising concern for bile leak. Bile sample was sent for culture. Patient underwent HIDA scan demonstrating bile leak with biloma. Patient was scheduled for ERCP with
sphincterotomy and biliary stent placement, which he underwent on 11/29/2024. Patient tolerated all procedures well. He was advanced from clear liquid diet to low-fat diet and tolerated well. All blood cultures were negative. Preliminary bile
culture showing E. coli. Follow-up with surgery was scheduled for 1 week for drain removal. He was transitioned to p.o. Augmentin and discharged on 7 days of antibiotics. He was instructed to follow-up with GI in 6 weeks.
Patient has a history of uncontrolled hypertension and had not been regularly following up with PCP prior to admission. He was managed on home antihypertensive medications and as needed hydralazine for blood pressure control. He was advised that
he could schedule with our outpatient family medicine residency clinic to establish care. My information was placed in the discharge orders. I reached out to our office staff to schedule an appointment for him as a new patient.
All other chronic medical conditions were stable throughout admission unless otherwise mentioned above. All other home medications were continued without changes unless otherwise mentioned above.
Important imaging findings :
US Abdomen Complete/Upper (11/26/2024):
IMPRESSION:
1.4 cm gallstone in the neck of the gallbladder, nonmobile.
Gallbladder wall appears thickened and heterogeneous with suggestion of edema within the gallbladder wall. Imaging findings would be suggestive of acute cholecystitis, although the patient has a negative sonographic Rehman's sign.
Mild dilation of the common bile duct, measuring up to 7 mm, which appears to be new since CT scan of November 21, 2024. No sonographic evidence for common bile duct calculus, although the entire common bile duct is not visualized.
Upper abdominal aorta and upper abdominal IVC are unable to be adequately visualized.
Suboptimal visualization of the pancreas, with no gross abnormality in the peripancreatic region.
MR Mrcp Without contrast (11/26/2024):
IMPRESSION:
1. Locally perforated acute calculus cholecystitis.
2. No choledocholithiasis.
NM Hepatobiliary (hida) (11/28/2024):
IMPRESSION: Status post cholecystectomy. No evidence for biliary ductal obstruction.
There is radiotracer accumulation within patient's drain. No evidence of a focal collection to suggest a biloma at this time.
ENDOSCOPIC RETROGRADE CHOLANGIOPANCREATOGRAPHY 11/29/2024:
FINDINGS/IMPRESSION:
1. ERCP images obtained status post cholecystectomy without overt bile leak.
2. For further information, please see the dictated procedure note.
Procedure findings :
Endo Retrograde Cholangiopancr (11/29/2024):
Impression:
- The major papilla was located partially within a diverticulum.
- A bile leak was found.
- A biliary sphincterotomy was performed.
- One plastic stent was placed into the common hepatic duct.
Laparoscopic cholecystectomy (11/27/2024):
Operative Findings:
1. Severe gangrenous perforated GB, purulence within GB, necrotic friable wall, large stone
2. Duct identified, unable to thread cholangiogram catheter
3. Artery taken with clips, duct with 0 PDS Endoloop
4. 19 Fr MIKAYLA into operative field
Discharge Plan
-
Patient Disposition: Home (Routine Discharge)
Discharge Diagnosis/Procedures: Severe cholecystitis, laparoscopic cholecystectomy and ERCP
Condition: Good
Diet: Low Fat
Activity: No strenuous activity
Additional Activity: No heavy lifting (>20 lbs) or strenuous activities for 2-3 weeks postoperatively
Driving Restrictions: No driving if too sore or take narcotics
Bathing Restrictions: OK to Shower
Wound Care: Keep incisions clean and dry. Glue will flake off in 2 to 3 weeks. Stitches will dissolve. Keep MIKAYLA drain safe and protected. Empty daily and as needed, record outputs. Cover drain site with a clean gauze dressing and change daily.
Activity Restrictions/Additional Instructions:
Call for fevers (>100.5), nausea or vomiting, worsening abdominal pain, fevers or chills, issues with your drain, yellowing of the eyes or skin
Instructions: How to care for a closed suction drain
Referrals:
Jordy Sutherland CRNP [Family Provider, General]
Sb Valencia MD [Active, Surgical] - 12/06/24
Referral Note: Drain removal, post-op follow up
Hunter Demarco MD [Active, Gastroenterology] - 01/07/25 7:30 am
Referral Note: Please call to reschedule if you can not keep this appointment. If your insurance requires a referral please contact your primary care physician prior to your appointment.
Ollie Amin MD, Resident [Family Practice Resident Year2, General] - in one week
Additional Discharge Medication Instructions: Continue taking Augmentin 875-125 mg Tablet every 12 hours for the next seven days
Prescriptions:
New
amoxicillin-pot clavulanate 875-125 mg tablet
1 tab PO BID 7 Days Qty: 14 0RF
Continued
lisinopril 10 mg tablet
10 mg PO DAILY
metoprolol succinate [Toprol XL] 50 mg Tablet Extended Release 24 Hr
50 mg PO DAILY
calcium carbonate [Tums] 200 mg calcium (500 mg) Tablet,Chewable
200 mg PO BIDPRN PRN (Reason: gerd)
metoprolol succinate [Toprol XL] 25 mg Tablet Extended Release 24 Hr
25 mg PO QPM
escitalopram oxalate [Lexapro] 10 mg Tablet
10 mg PO DAILY
ibuprofen [Advil] 200 mg Tablet
800 mg PO DAILYPRN PRN (Reason: mild pain)
albuterol sulfate 90 mcg/actuation HFA aerosol inhaler
1 puff INHALATION Q8HPRN PRN (Reason: SHORTNESS OF BREATH)
Discharge Orders:
Discharge Patient (As Directed); Ordered 11/30/24
Ordered By: Ollie Amin
Discharge Date and Time
Discharge Date/Time: 11/30/24 14:46
Print Language: HEBREW
== END 2024-11-30 14:46 | disposition home or self-care (01) | DRG 854 ==
LOC: 3 WEST ACU 15:29
PROVIDERS: Clinical Nurse Specialist Family Health; Internal Medicine Gastroenterology; Nurse Practitioner Adult Health; Physician Assistant; ADMITTING PHYSICIAN Hospitalist; ATTENDING PHYSICIAN Hospitalist; CONSULT PHYSICIAN Internal Medicine Infectious Disease; CONSULT PHYSICIAN Surgery; EMERGENCY PHYSICIAN Emergency Medicine; FAMILY PHYSICIAN Nurse Practitioner Family; OTHER PHYSICIAN Internal Medicine Gastroenterology
PROC: 0FT44ZZ Resection of Gallbladder, Percutaneous Endoscopic Approach (ICD-10-PCS; 2024-11-27)
PROC: 0F778DZ Dilation of Common Hepatic Duct with Intraluminal Device, Via Natural or Artificial Opening Endoscopic (ICD-10-PCS; 2024-11-29)
DX: A41.9 Sepsis, unspecified organism (principal); E87.1 Hypo-osmolality and hyponatremia; K80.12 Calculus of gallbladder with acute and chronic cholecystitis without obstruction; K82.A2 Perforation of gallbladder in cholecystitis; K91.89 Other postprocedural complications and disorders of digestive system; K83.8 Other specified diseases of biliary tract; I10 Essential (primary) hypertension; F41.9 Anxiety disorder, unspecified; F32.A Depression, unspecified; K21.9 Gastro-esophageal reflux disease without esophagitis; F17.210 Nicotine dependence, cigarettes, uncomplicated; E66.9 Obesity, unspecified; J45.909 Unspecified asthma, uncomplicated; K82.A1 Gangrene of gallbladder in cholecystitis; K76.0 Fatty (change of) liver, not elsewhere classified; D72.829 Elevated white blood cell count, unspecified; B96.20 Unspecified Escherichia coli [E. coli] as the cause of diseases classified elsewhere; Y83.8 Other surgical procedures as the cause of abnormal reaction of the patient, or of later complication, without mention of misadventure at the time of the procedure; Z68.29 Body mass index [BMI] 29.0-29.9, adult
CPT/HCPCS: 74181; 74330; 76000; 76700; 78226; 80053; 81003; 83605; 83690; 85025; 85027; 85610; 87015; 87040; 87070; 87077; 87186; 87205; 88304; 99285; 99406; A9537; C1769; C2625